=== PATIENT | female | born 1975 | race Caucasian/White ===

== ENCOUNTER 2016-10-23 20:58 | Emergency (ER) | payer MEDICAID ==
[~2016-10-23] VITALS: Ht 160 cm; Wt 91.0 kg
[2016-10-23] MEDS ORDERED: SODIUM CHLORIDE 0.9% 1,000 ML IV ONE (22:49)
[2016-10-23] MEDS ORDERED: MORPHINE SULFATE 4 MG/ML CPJ (NOT FOR IM USE) IV STA (22:49)
[2016-10-23] MEDS ORDERED: ONDANSETRON HCL 4MG/2ML VIAL IV STA (22:49)
[2016-10-23 23:04] LABS: BASOPHILS % 0.4 % (0.0-2.0); EOSINOPHILS % 1.3 % (0.0-5.0); HEMATOCRIT. 30.4 % (36.0-48.0); HEMOGLOBIN. 9.7 g/dL (12.0-16.0); LYMPHOCYTES % 11.6 % (20.0-50.0); MEAN CORPUSCULAR HEMOGLOBIN 25.5 pg (28.0-32.0); MEAN CORPUSCULAR HGB CONC 31.9 g/dL (31.0-37.0); MEAN CORPUSCULAR VOLUME 79.7 fL (81.0-99.0); MEAN PLATELET VOLUME 7.3 fl (7.4-10.4); MONOCYTES % 6.9 % (2.0-8.0); NEUTROPHILS % 79.8 % (40.0-76.0); PLATELET 90 x1000/uL (130-400); RED BLOOD CELL COUNT 3.82 mill/uL (4.2-5.4); RED CELL DISTRIBUTION WIDTH 23.3 % (11.6-14.6); WHITE BLOOD COUNT 6.9 x1000/uL (4.5-11.0)
[2016-10-23 23:14] LABS: ANION GAP 16; CALCIUM 8.5 mg/dL (8.5-10.1); CARBON DIOXIDE 24 mEq/L (21-32); CHLORIDE 103 mEq/L (98-107); INDEX HEMOLYSI 1 (1-3); INDEX ICTERIC 1 (1-4); INDEX LIPEMIC 1 (1-3)
[2016-10-23 23:15] LABS: DIFFERENTIAL COMMENT 1; eGFR > 60 mL/min (>60)
[2016-10-23 23:17] LABS: ADD RBC MORPHOLOGY YES; UREA NITROGEN BLOOD 3 mg/dL (7-21)
[2016-10-23 23:19] LABS: TROPONIN I < 0.02 ng/mL (0.00-0.04)
[2016-10-23 23:29] LABS: PLATELET ESTIMATE DECREASED
[2016-10-23 23:30] LABS: HYPOCHROMASIA 1+
[2016-10-24 01:58] VITALS: BP 121/75
== END 2016-10-24 03:37 | disposition home or self-care (01) ==
LOC: ER 21:11
DX: R09.1 Pleurisy (principal); J18.9 Pneumonia, unspecified organism; I50.9 Heart failure, unspecified
CPT/HCPCS: 36415; 71010; 80048; 81025; 84484; 85025; 93005; 96361; 96374; 96375; 99285; J2270; J2405; J7030; Z7610

== ENCOUNTER 2019-04-26 12:07 | Inpatient (IN) | payer SELFPAY ==
[~2019-04-26] VITALS: Ht 160 cm; Wt 99.3 kg
[2019-04-26] MEDS ORDERED: LORAZEPAM 2MG/ML CPJ IV ONE (13:00)
[2019-04-26 13:10] LABS: BASOPHILS % 0.6 % (0.0-2.0); EOSINOPHILS % 0.7 % (0.0-5.0); HEMATOCRIT. 23.9 % (36.0-48.0); LYMPHOCYTES % 13.3 % (20.0-50.0); MEAN CORPUSCULAR HEMOGLOBIN 18.8 pg (28.0-32.0); MEAN PLATELET VOLUME 8.2 fl (7.4-10.4); MONOCYTES % 7.5 % (2.0-8.0); NEUTROPHILS % 77.9 % (40.0-76.0); RED BLOOD CELL COUNT 3.74 mill/uL (4.2-5.4); RED CELL DISTRIBUTION WIDTH 22.5 % (11.6-14.6)
[2019-04-26 13:16] LABS: CHLORIDE 102 mEq/L (98-107)
[2019-04-26 13:17] LABS: PLATELET 41 x1000/uL (130-400)
[2019-04-26 13:59] LABS: PLATELET ESTIMATE MARKEDLY DECREASED
[2019-04-26] MEDS ORDERED: KCL 20MEQ/100ML PREMIX 100 ML IV NR (14:15)
[2019-04-26] MEDS ORDERED: HYDROCODONE/ACETAMINOPHEN 5/325MG TABLET PO PRN (17:15)
[2019-04-26] MEDS ORDERED: LORAZEPAM 2MG/ML CPJ IV PRN (17:15)
[2019-04-26] MEDS ORDERED: MORPHINE SULFATE 2 MG/ML CPJ (NOT FOR IM USE) IV PRN (17:15)
[2019-04-26] MEDS ORDERED: ONDANSETRON HCL 4MG/2ML INJ IV PRN (17:15)
[2019-04-26] MEDS: SODIUM CHLORIDE 0.9% 1,000 ML IV SCH (17:58)
[2019-04-26] MEDS ORDERED: POTASSIUM CHLORIDE 20MEQ TABLET SR PO NR (18:15)
[2019-04-26] MEDS ORDERED: THIAMINE HCL 100MG TABLET PO NR (18:15)
[2019-04-27] VITALS (9 sets, daily range): BP systolic 126–145; BP diastolic 65–83
[2019-04-27] MEDS: SODIUM CHLORIDE 0.9% 1,000 ML IV SCH (03:42)
[2019-04-27] MEDS: THIAMINE HCL 100MG TABLET PO SCH (10:00)
[2019-04-27] MEDS: POTASSIUM CHLORIDE 20MEQ TABLET SR PO SCH ×2 (10:00→16:39)
[2019-04-27 10:27] LABS: HEMATOCRIT 24.2 % (36.0-48.0); HEMOGLOBIN 7.2 g/dL (12.0-16.0)
[2019-04-27 10:37] LABS: INR 1.3; PROTHROMBIN TIME 13.5 sec (9.6-11.0)
[2019-04-27 10:58] LABS: CHLORIDE 103 mEq/L (98-107)
[2019-04-27 11:19] LABS: TOTAL IRON BINDING CAPACITY 417 ug/dL (250-450)
[2019-04-27] MEDS ORDERED: POTASSIUM CHLORIDE 20MEQ TABLET SR PO NR (13:00)
[2019-04-27] MEDS ORDERED: MAGNESIUM 4 G PREMIX 100 ML IV NR (14:00)
[2019-04-27 15:10] LABS: FERRITIN 10 ng/mL (10-291)
[2019-04-27 15:16] LABS: HEPATITIS B SURFACE ANTIGEN NEGATIVE
[2019-04-27 15:45] LABS: HEPATITIS A AB IGM NEGATIVE (NEGATIVE)
[2019-04-27] MEDS ORDERED: FUROSEMIDE 20MG/2ML VIAL IVP NR (16:30)
[2019-04-27] MEDS: LOSARTAN POTASSIUM 25 MG TABLET PO SCH (18:04)
[2019-04-27] MEDS: FERROUS SULFATE 325MG TABLET PO SCH (18:04)
[2019-04-27] MEDS: DOCUSATE SODIUM 100MG CAPSULE PO SCH (18:05)
[2019-04-27 23:29] LABS: CLARITY URINE CLEAR (CLEAR); COLOR URINE YELLOW (YELLOW); KETONES URINE NEGATIVE (NEGATIVE); LEUKOCYTE ESTERASE URINE 3+ (NEGATIVE); NITRITE URINE NEGATIVE (NEGATIVE); OCCULT BLOOD URINE 2+ (NEGATIVE); PROTEIN URINE NEGATIVE (NEGATIVE); SPECIFIC GRAVITY URINE 1.004 (1.005-1.030)
[2019-04-27 23:44] LABS: *AMPHETAMINES SCREEN URINE NEGATIVE (NEGATIVE); *BARBITURATES SCREEN URINE NEGATIVE (NEGATIVE)
[2019-04-27 23:46] LABS: *BENZODIAZEPINES SCREEN URINE NEGATIVE (NEGATIVE); *COCAINE SCREEN URINE NEGATIVE (NEGATIVE); METHADONE URINE SCREEN NEGATIVE (NEGATIVE)
[2019-04-27 23:47] LABS: CANNABINOID URINE SCREEN NEGATIVE (NEGATIVE); OPIATES URINE SCREEN NEGATIVE (NEGATIVE); PHENCYCLIDINE URINE SCREEN NEGATIVE (NEGATIVE)
[2019-04-28] VITALS: BP 134/80
[2019-04-28 04:00] VITALS: BP 120/63
[2019-04-28 08:00] VITALS: BP 137/71
[2019-04-28 08:00] LABS: HEMATOCRIT. 28.6 % (36.0-48.0); HEMOGLOBIN. 8.1 g/dL (12.0-16.0); MEAN CORPUSCULAR HEMOGLOBIN 19.5 pg (28.0-32.0); MEAN CORPUSCULAR VOLUME 68.7 fL (81.0-99.0); MEAN PLATELET VOLUME 8.3 fl (7.4-10.4); RED BLOOD CELL COUNT 4.16 mill/uL (4.2-5.4); RED CELL DISTRIBUTION WIDTH 23.4 % (11.6-14.6)
[2019-04-28] MEDS ORDERED: FUROSEMIDE 20MG/2ML VIAL IVP SCH (08:00)
[2019-04-28 08:03] LABS: CHLORIDE 108 mEq/L (98-107)
[2019-04-28 09:31] VITALS: BP 137/71
[2019-04-28] MEDS: POTASSIUM CHLORIDE 20MEQ TABLET SR PO SCH (09:47)
[2019-04-28] MEDS: FERROUS SULFATE 325MG TABLET PO SCH ×2 (09:47→12:26)
[2019-04-28] MEDS: DOCUSATE SODIUM 100MG CAPSULE PO SCH (09:47)
[2019-04-28] MEDS: THIAMINE HCL 100MG TABLET PO SCH (09:47)
[2019-04-28] MEDS: LOSARTAN POTASSIUM 25 MG TABLET PO SCH (09:47)
[2019-04-28] MEDS ORDERED: CEFTRIAXONE 1 G PREMIX 50 ML IV SCH (10:30)
[2019-04-28] MEDS ORDERED: CEFTRIAXONE 1,000 MG in DEXTROSE 5% WATER 50 ML IV SCH (11:00)
[2019-04-28 12:20] VITALS: BP 111/56
[2019-04-28 13:56] VITALS: BP 111/56
[2019-04-29 15:57] LABS: PLATELET ESTIMATE MARKEDLY DECREASED
[2019-04-29 15:58] LABS: PLATELET 48 x1000/uL (130-400)
[2019-04-30 13:09] LABS: HIV SCREEN 4G Non Reactive (Non Reactive)
== END 2019-04-28 14:24 | disposition home or self-care (01) | DRG 194 ==
LOC: ER 12:07 → EDBEDREQSVC 16:49 → EDBEDREQ 16:50 → EDBEDREQTM 16:50 → ENRESERV 21:47 → 7WST 04-27 01:12
PROVIDERS: ADMIT Internal Medicine Nephrology; ATTEND Internal Medicine Nephrology
PROC: 30233N1 Transfusion of Nonautologous Red Blood Cells into Peripheral Vein, Percutaneous Approach (ICD-10-PCS; principal; 2019-04-27)
DX: I11.0 Hypertensive heart disease with heart failure (principal); D61.818 Other pancytopenia; K74.60 Unspecified cirrhosis of liver; E66.01 Morbid (severe) obesity due to excess calories; E87.6 Hypokalemia; R07.89 Other chest pain; I50.33 Acute on chronic diastolic (congestive) heart failure; K76.0 Fatty (change of) liver, not elsewhere classified; N39.0 Urinary tract infection, site not specified; Z98.891 History of uterine scar from previous surgery; Z68.38 Body mass index [BMI] 38.0-38.9, adult; Z79.899 Other long term (current) drug therapy
CPT/HCPCS: 36415; 71045; 76700; 80048; 80305; 81003; 82728; 83036; 83540; 83550; 83735; 83880; 84484; 85014; 85018; 85049; 85379; 85384; 86705; 86709; 86803; 86850; 86870; 86900; 86920; 87077; 87186; 87340; 87389; 93005; 93306; 93970; 99285; J0696; J1940; J2060; J3475; J3480; J7040; J7060; P9016

== ENCOUNTER 2020-01-04 17:01 | Inpatient (IN) | payer MEDICAID ==
[~2020-01-04] VITALS: Ht 160 cm; Wt 109.8 kg
[2020-01-04 18:05] LABS: HEMATOCRIT. 31.3 % (36.0-48.0); HEMOGLOBIN. 9.8 g/dL (12.0-16.0); MEAN CORPUSCULAR HEMOGLOBIN 24.1 pg (28.0-32.0); MEAN CORPUSCULAR VOLUME 76.7 fL (81.0-99.0); MEAN PLATELET VOLUME 8.4 fl (7.4-10.4); RED BLOOD CELL COUNT 4.08 mill/uL (4.2-5.4); RED CELL DISTRIBUTION WIDTH 23.9 % (11.6-14.6)
[2020-01-04 18:10] LABS: PLATELET 41 x1000/uL (130-400)
[2020-01-04 18:12] LABS: CHLORIDE 101 mEq/L (98-107)
[2020-01-04 18:18] LABS: ETHANOL BLOOD 215 mg/dL
[2020-01-04] MEDS ORDERED: MORPHINE SULFATE 4 MG/ML CPJ (NOT FOR IM USE) IV STA (18:31)
[2020-01-04] MEDS ORDERED: ONDANSETRON HCL 4MG/2ML INJ IV STA (18:31)
[2020-01-04 18:42] LABS: CLARITY URINE CLEAR (CLEAR); COLOR URINE YELLOW (YELLOW); KETONES URINE NEGATIVE (NEGATIVE); LEUKOCYTE ESTERASE URINE 1+ (NEGATIVE); NITRITE URINE POSITIVE (NEGATIVE); OCCULT BLOOD URINE NEGATIVE (NEGATIVE); PROTEIN URINE 1+ (NEGATIVE); SPECIFIC GRAVITY URINE 1.006 (1.005-1.030)
[2020-01-04 18:47] LABS: HCG SCREEN NEGATIVE
[2020-01-04 18:58] LABS: *AMPHETAMINES SCREEN URINE NEGATIVE (NEGATIVE); *BARBITURATES SCREEN URINE NEGATIVE (NEGATIVE); *BENZODIAZEPINES SCREEN URINE NEGATIVE (NEGATIVE); *COCAINE SCREEN URINE NEGATIVE (NEGATIVE); METHADONE URINE SCREEN NEGATIVE (NEGATIVE); OPIATES URINE SCREEN NEGATIVE (NEGATIVE)
[2020-01-04 18:59] LABS: CANNABINOID URINE SCREEN NEGATIVE (NEGATIVE); PHENCYCLIDINE URINE SCREEN NEGATIVE (NEGATIVE)
[2020-01-04] MEDS ORDERED: POTASSIUM CHLORIDE 20MEQ TABLET SR PO ONE (19:00)
[2020-01-04] MEDS ORDERED: CEFTRIAXONE 1 G PREMIX 50 ML IV ONE (19:00)
[2020-01-04 19:03] LABS: INR 1.2; PROTHROMBIN TIME 12.7 sec (9.6-11.0)
[2020-01-04 19:06] LABS: NUCLEATED RED BLOOD CELLS 3 /100 WBC
[2020-01-04 19:07] LABS: PLATELET ESTIMATE MARKEDLY DECREASED
[2020-01-04] MEDS ORDERED: DOCUSATE SODIUM 100MG CAPSULE PO PRN (22:15)
[2020-01-04] MEDS ORDERED: LORAZEPAM 2MG/ML CPJ IV PRN (22:15)
[2020-01-04] MEDS ORDERED: MAGNESIUM/ALUMINUM HYDROXIDE/SIMETHICONE 30ML UDC PO PRN (22:15)
[2020-01-04] MEDS ORDERED: DIPHENHYDRAMINE 50MG/ML VIAL IV PRN (22:15)
[2020-01-04] MEDS ORDERED: CLONIDINE 0.1MG TABLET PO PRN (22:15)
[2020-01-04] MEDS ORDERED: HYDROCODONE/ACETAMINOPHEN 10/325MG TABLET PO PRN (22:15)
[2020-01-04] MEDS ORDERED: HYDRALAZINE 20MG/ML VIAL IV PRN (22:15)
[2020-01-04] MEDS ORDERED: IPRATROPIUM/ALBUTEROL 0.5-3(2.5)MG/3ML NEB HHN PRN (22:15)
[2020-01-04] MEDS ORDERED: GUAIFENESIN 200MG/10ML SUGAR FREE UDC PO PRN (22:15)
[2020-01-04] MEDS ORDERED: ONDANSETRON HCL 4MG/2ML INJ IV PRN (22:15)
[2020-01-04] MEDS ORDERED: DEXT 5%/0.45% NACL 1000ML 1,000 ML IV SCH (23:00)
[2020-01-04 23:15] VITALS: BP 125/67
[2020-01-05] VITALS: BP 118/72
[2020-01-05] MEDS: MORPHINE SULFATE 2 MG/ML CPJ (NOT FOR IM USE) IV PRN (01:34)
[2020-01-05] MEDS ORDERED: TOPUD PO (01:58)
[2020-01-05 04:00] VITALS: BP 158/100
[2020-01-05] MEDS: SODIUM CHLORIDE 0.9% INJ 3ML FLUSH IVF SCH ×3 (06:18→22:48)
[2020-01-05 06:50] LABS: CHLORIDE 103 mEq/L (98-107)
[2020-01-05 06:51] LABS: HEMATOCRIT. 31.5 % (36.0-48.0); HEMOGLOBIN. 9.4 g/dL (12.0-16.0); MEAN CORPUSCULAR HEMOGLOBIN 23.6 pg (28.0-32.0); MEAN PLATELET VOLUME 8.2 fl (7.4-10.4); RED BLOOD CELL COUNT 3.98 mill/uL (4.2-5.4)
[2020-01-05 07:54] LABS: INR 1.2; PARTIAL THROMBOPLASTIN TIME 29.9 sec (23.4-31.0); PROTHROMBIN TIME 13.3 sec (9.6-11.0)
[2020-01-05 08:00] VITALS: BP 141/72
[2020-01-05] MEDS: ACETAMINOPHEN 325MG TABLET PO PRN ×2 (08:05→16:20)
[2020-01-05 08:27] LABS: PLATELET 39 x1000/uL (130-400)
[2020-01-05 08:31] LABS: NUCLEATED RED BLOOD CELLS 1 /100 WBC
[2020-01-05 08:32] LABS: PLATELET ESTIMATE MARKEDLY DECREASED
[2020-01-05 11:36] VITALS: BP 137/79
[2020-01-05] MEDS: FUROSEMIDE 40MG/4ML VIAL IVP SCH (14:08)
[2020-01-05] MEDS ORDERED: OXYMETAZOLINE HCL NASAL SPRAY 15ML BOTHNSTRLS PRN (15:30)
[2020-01-05 16:00] VITALS: BP 136/67
[2020-01-05] MEDS: AZITHROMYCIN 500 MG in DEXT 5% WATER 250 ML IV SCH (16:20)
[2020-01-05] MEDS: MULTIVITAMINS,THER W-MINERALS TABLET PO SCH (16:20)
[2020-01-05] MEDS: SODIUM CHLORIDE 0.45% 1,000 ML IV SCH (16:21)
[2020-01-05] MEDS: THIAMINE HCL 100MG TABLET PO SCH (16:22)
[2020-01-05] MEDS: FOLIC ACID 1MG TABLET PO SCH (16:24)
[2020-01-05] MEDS: CEFTRIAXONE 1 G PREMIX 50 ML IV SCH (17:25)
[2020-01-05] MEDS ORDERED: CEFTRIAXONE 1 G PREMIX 50 ML IV SCH (18:00)
[2020-01-05 20:00] VITALS: BP 135/70
[2020-01-05] MEDS: ASCORBIC ACID 500 MG TABLET PO SCH (21:56)
[2020-01-05] MEDS: CHLORDIAZEPOXIDE 25MG CAPSULE PO SCH (21:57)
[2020-01-05] MEDS: GUAIFENESIN 600MG ER TABLET PO SCH (21:57)
[2020-01-06] VITALS: BP 151/74
[2020-01-06] MEDS: SODIUM CHLORIDE 0.9% INJ 3ML FLUSH IVF SCH ×3 (06:17→21:19)
[2020-01-06] MEDS: CHLORDIAZEPOXIDE 25MG CAPSULE PO SCH ×3 (06:17→21:18)
[2020-01-06] MEDS: ACETAMINOPHEN 325MG TABLET PO PRN ×2 (06:32→16:53)
[2020-01-06 06:33] LABS: BASOPHILS % 0.4 % (0.0-2.0); EOSINOPHILS % 6.5 % (0.0-5.0); HEMATOCRIT. 31.5 % (36.0-48.0); HEMOGLOBIN. 9.4 g/dL (12.0-16.0); LYMPHOCYTES % 8.5 % (20.0-50.0); MEAN CORPUSCULAR HEMOGLOBIN 23.6 pg (28.0-32.0); MEAN CORPUSCULAR VOLUME 78.9 fL (81.0-99.0); MEAN PLATELET VOLUME 8.2 fl (7.4-10.4); MONOCYTES % 7.4 % (2.0-8.0); NEUTROPHILS % 77.2 % (40.0-76.0); PLATELET 53 x1000/uL (130-400); RED BLOOD CELL COUNT 3.99 mill/uL (4.2-5.4); RED CELL DISTRIBUTION WIDTH 24.9 % (11.6-14.6)
[2020-01-06 06:39] LABS: INR 1.4; PROTHROMBIN TIME 14.9 sec (9.6-11.0)
[2020-01-06 06:55] LABS: CHLORIDE 96 mEq/L (98-107)
[2020-01-06 07:03] LABS: AMYLASE 171 IU/L (25-115); TOTAL IRON BINDING CAPACITY 346 ug/dL (250-450)
[2020-01-06 07:54] VITALS: BP 129/66
[2020-01-06] MEDS: FOLIC ACID 1MG TABLET PO SCH (09:02)
[2020-01-06] MEDS: MULTIVITAMINS,THER W-MINERALS TABLET PO SCH (09:02)
[2020-01-06] MEDS: FUROSEMIDE 40MG/4ML VIAL IVP SCH (09:02)
[2020-01-06] MEDS: ZINC SULFATE 220 MG ( 50 ) CAPSULE PO SCH (09:03)
[2020-01-06] MEDS: THIAMINE HCL 100MG TABLET PO SCH (09:03)
[2020-01-06] MEDS: GUAIFENESIN 600MG ER TABLET PO SCH ×2 (09:03→21:18)
[2020-01-06] MEDS: ASCORBIC ACID 500 MG TABLET PO SCH ×2 (09:03→21:19)
[2020-01-06] MEDS ORDERED: POTASSIUM CHLORIDE INJ 40 MEQ in DEXT 5% WATER 250 ML IV SCH (10:00)
[2020-01-06] MEDS: ALBUTEROL 6.7GM HFA INHALER ORI SCH (10:29)
[2020-01-06 12:00] VITALS: BP 114/58
[2020-01-06] MEDS: AZITHROMYCIN 500 MG in DEXT 5% WATER 250 ML IV SCH (12:06)
[2020-01-06] MEDS: MORPHINE SULFATE 2 MG/ML CPJ (NOT FOR IM USE) IV PRN (12:06)
[2020-01-06] MEDS: CEFTRIAXONE 1 G PREMIX 50 ML IV SCH (13:22)
[2020-01-06 16:00] VITALS: BP 118/67
[2020-01-06] MEDS: SODIUM CHLORIDE 0.45% 1,000 ML IV SCH ×2 (16:53→23:21)
[2020-01-06 20:00] VITALS: BP 123/71
[2020-01-07] VITALS (7 sets, daily range): BP systolic 117–136; BP diastolic 72–79
[2020-01-07] MEDS: ACETAMINOPHEN 325MG TABLET PO PRN ×3 (01:50→18:40)
[2020-01-07] MEDS: ALBUTEROL 6.7GM HFA INHALER ORI SCH ×3 (04:00→13:20)
[2020-01-07] MEDS: CHLORDIAZEPOXIDE 25MG CAPSULE PO SCH ×3 (05:18→21:30)
[2020-01-07] MEDS: SODIUM CHLORIDE 0.9% INJ 3ML FLUSH IVF SCH ×3 (05:18→21:30)
[2020-01-07] MEDS: SODIUM CHLORIDE 0.45% 1,000 ML IV SCH ×3 (06:01→19:21)
[2020-01-07] MEDS: THIAMINE HCL 100MG TABLET PO SCH (08:32)
[2020-01-07] MEDS: ASCORBIC ACID 500 MG TABLET PO SCH ×2 (08:32→20:43)
[2020-01-07] MEDS: ZINC SULFATE 220 MG ( 50 ) CAPSULE PO SCH (08:32)
[2020-01-07] MEDS: MULTIVITAMINS,THER W-MINERALS TABLET PO SCH (08:33)
[2020-01-07] MEDS: GUAIFENESIN 600MG ER TABLET PO SCH ×2 (08:33→20:43)
[2020-01-07] MEDS: FOLIC ACID 1MG TABLET PO SCH (08:33)
[2020-01-07 08:52] LABS: INR 1.5; PROTHROMBIN TIME 16.5 sec (9.6-11.0)
[2020-01-07] MEDS ORDERED: SODIUM CHLORIDE 45ML SPRAY NS PRN (13:15)
[2020-01-07] MEDS ORDERED: IPRATROPIUM/ALBUTEROL 0.5-3(2.5)MG/3ML NEB HHN PRN (14:00)
[2020-01-07] MEDS: AZITHROMYCIN 500 MG in DEXT 5% WATER 250 ML IV SCH (14:05)
[2020-01-07] MEDS: CEFTRIAXONE 1 G PREMIX 50 ML IV SCH (15:24)
[2020-01-07] MEDS: LACTULOSE 20G/30ML UDC PO SCH ×2 (15:37→21:30)
[2020-01-07] MEDS: RIFAXIMIN 550 MG TABLET PO SCH (20:43)
[2020-01-07] MEDS: IPRATROPIUM/ALBUTEROL 0.5-3(2.5)MG/3ML NEB HHN SCH (21:38)
[2020-01-08] VITALS (7 sets, daily range): BP systolic 113–145; BP diastolic 57–86
[2020-01-08] MEDS: IPRATROPIUM/ALBUTEROL 0.5-3(2.5)MG/3ML NEB HHN SCH ×4 (01:02→21:38)
[2020-01-08] MEDS: SODIUM CHLORIDE 0.45% 1,000 ML IV SCH ×4 (02:01→21:31)
[2020-01-08 05:31] LABS: INR 1.6; PROTHROMBIN TIME 16.7 sec (9.6-11.0)
[2020-01-08] MEDS: LACTULOSE 20G/30ML UDC PO SCH ×4 (06:08→21:28)
[2020-01-08] MEDS: SODIUM CHLORIDE 0.9% INJ 3ML FLUSH IVF SCH ×3 (06:08→21:27)
[2020-01-08] MEDS: CHLORDIAZEPOXIDE 25MG CAPSULE PO SCH ×2 (06:08→14:35)
[2020-01-08] MEDS: RIFAXIMIN 550 MG TABLET PO SCH ×2 (08:05→21:27)
[2020-01-08] MEDS: ASCORBIC ACID 500 MG TABLET PO SCH ×2 (08:05→21:27)
[2020-01-08] MEDS: MULTIVITAMINS,THER W-MINERALS TABLET PO SCH (08:05)
[2020-01-08] MEDS: GUAIFENESIN 600MG ER TABLET PO SCH ×2 (08:05→21:27)
[2020-01-08] MEDS: THIAMINE HCL 100MG TABLET PO SCH (08:05)
[2020-01-08] MEDS: FOLIC ACID 1MG TABLET PO SCH (08:05)
[2020-01-08] MEDS: ZINC SULFATE 220 MG ( 50 ) CAPSULE PO SCH (08:05)
[2020-01-08] MEDS ORDERED: IOHEXOL-350 100 ML BOTTLE ONE (08:47)
[2020-01-08 10:55] LABS: BASOPHILS % 1.1 % (0.0-2.0); EOSINOPHILS % 5.5 % (0.0-5.0); HEMATOCRIT. 33.3 % (36.0-48.0); HEMOGLOBIN. 10.1 g/dL (12.0-16.0); LYMPHOCYTES % 10.8 % (20.0-50.0); MEAN CORPUSCULAR HEMOGLOBIN 23.7 pg (28.0-32.0); MEAN CORPUSCULAR VOLUME 78.1 fL (81.0-99.0); MEAN PLATELET VOLUME 8.3 fl (7.4-10.4); MONOCYTES % 9.4 % (2.0-8.0); NEUTROPHILS % 73.2 % (40.0-76.0); PLATELET 68 x1000/uL (130-400); RED BLOOD CELL COUNT 4.27 mill/uL (4.2-5.4); RED CELL DISTRIBUTION WIDTH 26.1 % (11.6-14.6)
[2020-01-08 11:21] LABS: CHLORIDE 95 mEq/L (98-107)
[2020-01-08] MEDS: ACETAMINOPHEN 325MG TABLET PO PRN (12:08)
[2020-01-08] MEDS ORDERED: POTASSIUM CHLORIDE 20MEQ TABLET SR PO NR (12:30)
[2020-01-08 13:26] LABS: PLATELET ESTIMATE MARKEDLY DECREASED
[2020-01-08] MEDS: AZITHROMYCIN 500 MG in DEXT 5% WATER 250 ML IV SCH (13:43)
[2020-01-08] MEDS ORDERED: POTASSIUM CHLORIDE INJ 40 MEQ in DEXT 5% WATER 250 ML IV ONE (14:00)
[2020-01-08] MEDS: CEFTRIAXONE 1 G PREMIX 50 ML IV SCH (14:30)
[2020-01-09] VITALS: BP 122/90
[2020-01-09] MEDS: IPRATROPIUM/ALBUTEROL 0.5-3(2.5)MG/3ML NEB HHN SCH ×4 (02:36→14:05)
[2020-01-09 04:00] VITALS: BP 117/69
[2020-01-09] MEDS: SODIUM CHLORIDE 0.45% 1,000 ML IV SCH ×3 (05:12→18:14)
[2020-01-09] MEDS: SODIUM CHLORIDE 0.9% INJ 3ML FLUSH IVF SCH ×3 (05:12→23:25)
[2020-01-09] MEDS: LACTULOSE 20G/30ML UDC PO SCH ×3 (05:12→23:25)
[2020-01-09 06:13] LABS: BASOPHILS % 0.2 % (0.0-2.0); EOSINOPHILS % 5.8 % (0.0-5.0); HEMOGLOBIN. 9.4 g/dL (12.0-16.0); LYMPHOCYTES % 7.9 % (20.0-50.0); MEAN CORPUSCULAR HEMOGLOBIN 23.9 pg (28.0-32.0); MEAN CORPUSCULAR VOLUME 78.4 fL (81.0-99.0); NEUTROPHILS % 76.1 % (40.0-76.0); RED BLOOD CELL COUNT 3.95 mill/uL (4.2-5.4); RED CELL DISTRIBUTION WIDTH 25.9 % (11.6-14.6)
[2020-01-09 06:18] LABS: INR 1.4; PROTHROMBIN TIME 15.4 sec (9.6-11.0)
[2020-01-09 06:31] LABS: CHLORIDE 98 mEq/L (98-107)
[2020-01-09 06:42] LABS: AMYLASE 178 IU/L (25-115)
[2020-01-09 08:00] VITALS: BP 121/69
[2020-01-09] MEDS: ASCORBIC ACID 500 MG TABLET PO SCH ×2 (08:19→23:26)
[2020-01-09] MEDS: MULTIVITAMINS,THER W-MINERALS TABLET PO SCH (08:19)
[2020-01-09] MEDS: GUAIFENESIN 600MG ER TABLET PO SCH ×2 (08:19→23:26)
[2020-01-09] MEDS: FOLIC ACID 1MG TABLET PO SCH (08:19)
[2020-01-09] MEDS: THIAMINE HCL 100MG TABLET PO SCH (08:19)
[2020-01-09] MEDS: ZINC SULFATE 220 MG ( 50 ) CAPSULE PO SCH (08:20)
[2020-01-09] MEDS: CHLORDIAZEPOXIDE 25MG CAPSULE PO SCH (08:20)
[2020-01-09] MEDS: RIFAXIMIN 550 MG TABLET PO SCH ×2 (08:20→23:25)
[2020-01-09] MEDS ORDERED: POTASSIUM CHLORIDE 20MEQ TABLET SR PO SCH (09:00)
[2020-01-09 11:49] LABS: MEAN PLATELET VOLUME 8.3 fl (7.4-10.4); PLATELET 68 x1000/uL (130-400)
[2020-01-09 12:00] VITALS: BP 113/71
[2020-01-09] MEDS: AZITHROMYCIN 500 MG in DEXT 5% WATER 250 ML IV SCH (12:42)
[2020-01-09 16:00] VITALS: BP 117/80
[2020-01-09] MEDS: SODIUM CHLORIDE 45ML SPRAY NS SCH ×2 (18:13→23:25)
[2020-01-09 18:51] LABS: BG BASE EXCESS 6.8 mmol/L (-2.0-2.0); BG CARBOXYHEMOGLOBIN 0.8 % (0.5-1.5); BG DEOXYHEMOGLOBIN 7.6 % (0.0-5.0); BG FRACTION INSPIRED OXYGEN 40; BG HCO3 ACT 33.6 mmol/L (22.0-26.0); BG METHEMOGLOBIN 0.3 % (0.0-1.5); BG OXYGEN SATURATION 92.3 % (92.0-98.5); BG OXYHEMOGLOBIN 91.3 % (94.0-97.0); BG PH 7.359 (7.350-7.450); BG PO2 68.1 mmHg (75.0-100.0); BG SAMPLE SITE RIGHT RADIAL; BG VENT MODE NASAL CANNULA
[2020-01-09 20:00] VITALS: BP 120/68
[2020-01-10 00:24] VITALS: BP 141/71
[2020-01-10] MEDS: IPRATROPIUM/ALBUTEROL 0.5-3(2.5)MG/3ML NEB HHN SCH ×4 (01:59→21:06)
[2020-01-10] MEDS: SODIUM CHLORIDE 45ML SPRAY NS SCH ×6 (02:00→21:42)
[2020-01-10] MEDS: SODIUM CHLORIDE 0.45% 1,000 ML IV SCH ×4 (03:57→21:42)
[2020-01-10 04:00] VITALS: BP 139/65
[2020-01-10] MEDS: LACTULOSE 20G/30ML UDC PO SCH ×3 (06:52→21:22)
[2020-01-10] MEDS: SODIUM CHLORIDE 0.9% INJ 3ML FLUSH IVF SCH ×3 (06:52→21:43)
[2020-01-10 06:59] LABS: EOSINOPHILS % 6.6 % (0.0-5.0); HEMATOCRIT. 31.8 % (36.0-48.0); HEMOGLOBIN. 9.4 g/dL (12.0-16.0); LYMPHOCYTES % 10.9 % (20.0-50.0); MEAN CORPUSCULAR VOLUME 80.8 fL (81.0-99.0); MEAN PLATELET VOLUME 7.9 fl (7.4-10.4); MONOCYTES % 10.8 % (2.0-8.0); NEUTROPHILS % 70.7 % (40.0-76.0); PLATELET 82 x1000/uL (130-400); RED BLOOD CELL COUNT 3.93 mill/uL (4.2-5.4); RED CELL DISTRIBUTION WIDTH 25.3 % (11.6-14.6)
[2020-01-10] MEDS: ACETAMINOPHEN 325MG TABLET PO PRN (07:02)
[2020-01-10 07:11] LABS: CHLORIDE 100 mEq/L (98-107)
[2020-01-10 08:00] VITALS: BP 115/70
[2020-01-10] MEDS ORDERED: POTASSIUM CHLORIDE 20MEQ TABLET SR PO NR (08:15)
[2020-01-10] MEDS: ASCORBIC ACID 500 MG TABLET PO SCH ×2 (08:30→21:14)
[2020-01-10] MEDS: RIFAXIMIN 550 MG TABLET PO SCH ×2 (08:30→21:21)
[2020-01-10] MEDS: ZINC SULFATE 220 MG ( 50 ) CAPSULE PO SCH (08:30)
[2020-01-10] MEDS: FOLIC ACID 1MG TABLET PO SCH (08:30)
[2020-01-10] MEDS: GUAIFENESIN 600MG ER TABLET PO SCH ×2 (08:30→21:26)
[2020-01-10] MEDS: THIAMINE HCL 100MG TABLET PO SCH (08:30)
[2020-01-10] MEDS: CHLORDIAZEPOXIDE 25MG CAPSULE PO SCH (08:30)
[2020-01-10] MEDS: MULTIVITAMINS,THER W-MINERALS TABLET PO SCH (08:30)
[2020-01-10] MEDS ORDERED: POTASSIUM CHLORIDE INJ 40 MEQ in DEXT 5% WATER 250 ML IV NR (09:00)
[2020-01-10 12:15] VITALS: BP 116/57
[2020-01-10 16:00] VITALS: BP 108/61
[2020-01-10 20:00] VITALS: BP 127/82
[2020-01-10] MEDS: POTASSIUM CHLORIDE 20MEQ TABLET SR PO SCH (21:19)
[2020-01-11] VITALS: BP 124/76
[2020-01-11] MEDS: SODIUM CHLORIDE 45ML SPRAY NS SCH ×6 (01:59→22:07)
[2020-01-11] MEDS: SODIUM CHLORIDE 0.45% 1,000 ML IV SCH ×3 (03:21→17:49)
[2020-01-11 04:00] VITALS: BP 115/89
[2020-01-11] MEDS: LACTULOSE 20G/30ML UDC PO SCH ×3 (05:19→17:15)
[2020-01-11] MEDS: SODIUM CHLORIDE 0.9% INJ 3ML FLUSH IVF SCH ×3 (05:19→22:07)
[2020-01-11 05:22] LABS: CHLORIDE 101 mEq/L (98-107)
[2020-01-11 06:14] LABS: BASOPHILS % 1.8 % (0.0-2.0); EOSINOPHILS % 5.2 % (0.0-5.0); HEMATOCRIT. 30.7 % (36.0-48.0); HEMOGLOBIN. 9.3 g/dL (12.0-16.0); LYMPHOCYTES % 10.7 % (20.0-50.0); MEAN CORPUSCULAR HEMOGLOBIN 24.2 pg (28.0-32.0); MEAN PLATELET VOLUME 7.6 fl (7.4-10.4); NEUTROPHILS % 71.3 % (40.0-76.0); PLATELET 101 x1000/uL (130-400); RED BLOOD CELL COUNT 3.84 mill/uL (4.2-5.4); RED CELL DISTRIBUTION WIDTH 25.4 % (11.6-14.6)
[2020-01-11 08:00] VITALS: BP 125/81
[2020-01-11] MEDS: GUAIFENESIN 600MG ER TABLET PO SCH ×2 (08:47→20:41)
[2020-01-11] MEDS: ASCORBIC ACID 500 MG TABLET PO SCH ×2 (08:47→20:41)
[2020-01-11] MEDS: FOLIC ACID 1MG TABLET PO SCH (08:47)
[2020-01-11] MEDS: CHLORDIAZEPOXIDE 25MG CAPSULE PO SCH (08:47)
[2020-01-11] MEDS: ZINC SULFATE 220 MG ( 50 ) CAPSULE PO SCH (08:47)
[2020-01-11] MEDS: THIAMINE HCL 100MG TABLET PO SCH (08:47)
[2020-01-11] MEDS: POTASSIUM CHLORIDE 20MEQ TABLET SR PO SCH ×2 (08:47→17:15)
[2020-01-11] MEDS: RIFAXIMIN 550 MG TABLET PO SCH ×2 (08:47→20:41)
[2020-01-11] MEDS: MULTIVITAMINS,THER W-MINERALS TABLET PO SCH (08:47)
[2020-01-11] MEDS: IPRATROPIUM/ALBUTEROL 0.5-3(2.5)MG/3ML NEB HHN SCH ×3 (09:17→21:47)
[2020-01-11 12:00] VITALS: BP 110/56
[2020-01-11] MEDS: FERROUS SULFATE 325MG TABLET PO SCH ×2 (12:49→17:15)
[2020-01-11 15:39] LABS: CLARITY URINE CLEAR (CLEAR); COLOR URINE YELLOW (YELLOW); KETONES URINE NEGATIVE (NEGATIVE); LEUKOCYTE ESTERASE URINE 2+ (NEGATIVE); NITRITE URINE NEGATIVE (NEGATIVE); OCCULT BLOOD URINE NEGATIVE (NEGATIVE); PH URINE 7.5 (4.5-8.0); PROTEIN URINE NEGATIVE (NEGATIVE); SPECIFIC GRAVITY URINE 1.005 (1.005-1.030); UROBILINOGEN URINE 0.2 E.U./dL (0.2-1.0)
[2020-01-11 16:00] VITALS: BP 111/62
[2020-01-11 20:00] VITALS: BP 119/76
[2020-01-12] MEDS: IPRATROPIUM/ALBUTEROL 0.5-3(2.5)MG/3ML NEB HHN SCH ×4 (03:14→20:01)
[2020-01-12] MEDS: SODIUM CHLORIDE 45ML SPRAY NS SCH ×5 (03:48→22:00)
[2020-01-12] MEDS: SODIUM CHLORIDE 0.45% 1,000 ML IV SCH ×2 (03:51→16:58)
[2020-01-12 04:00] VITALS: BP 126/76
[2020-01-12] MEDS: SODIUM CHLORIDE 0.9% INJ 3ML FLUSH IVF SCH ×3 (06:10→22:00)
[2020-01-12] MEDS: ZINC SULFATE 220 MG ( 50 ) CAPSULE PO SCH (08:07)
[2020-01-12] MEDS: POTASSIUM CHLORIDE 20MEQ TABLET SR PO SCH ×2 (08:07→16:58)
[2020-01-12] MEDS: MULTIVITAMINS,THER W-MINERALS TABLET PO SCH (08:07)
[2020-01-12] MEDS: ASCORBIC ACID 500 MG TABLET PO SCH ×2 (08:07→20:48)
[2020-01-12] MEDS: FERROUS SULFATE 325MG TABLET PO SCH ×3 (08:07→16:58)
[2020-01-12] MEDS: RIFAXIMIN 550 MG TABLET PO SCH ×2 (08:07→20:48)
[2020-01-12] MEDS: THIAMINE HCL 100MG TABLET PO SCH (08:08)
[2020-01-12] MEDS: FOLIC ACID 1MG TABLET PO SCH (08:08)
[2020-01-12] MEDS: CHLORDIAZEPOXIDE 25MG CAPSULE PO SCH (08:08)
[2020-01-12] MEDS: GUAIFENESIN 600MG ER TABLET PO SCH ×2 (08:08→20:48)
[2020-01-12] MEDS: LACTULOSE 20G/30ML UDC PO SCH (08:17)
[2020-01-12 08:37] VITALS: BP 105/64
[2020-01-12 12:30] VITALS: BP 111/68
[2020-01-12] MEDS ORDERED: ZOLPIDEM TARTRATE 5MG TABLET PO PRN (15:45)
[2020-01-12 16:00] VITALS: BP 116/75
[2020-01-12 20:00] VITALS: BP 116/73
[2020-01-12] MEDS: ACETAMINOPHEN 325MG TABLET PO PRN (20:48)
[2020-01-13] VITALS: BP 115/66
[2020-01-13] MEDS: IPRATROPIUM/ALBUTEROL 0.5-3(2.5)MG/3ML NEB HHN SCH ×4 (00:12→22:20)
[2020-01-13] MEDS: SODIUM CHLORIDE 45ML SPRAY NS SCH ×6 (02:00→21:33)
[2020-01-13 04:00] VITALS: BP 117/58
[2020-01-13] MEDS: SODIUM CHLORIDE 0.9% INJ 3ML FLUSH IVF SCH ×3 (06:32→21:32)
[2020-01-13 06:35] LABS: BASOPHILS % 1.2 % (0.0-2.0); EOSINOPHILS % 4.3 % (0.0-5.0); HEMATOCRIT. 32.7 % (36.0-48.0); HEMOGLOBIN. 9.9 g/dL (12.0-16.0); LYMPHOCYTES % 10.1 % (20.0-50.0); MEAN CORPUSCULAR HEMOGLOBIN 24.2 pg (28.0-32.0); MEAN CORPUSCULAR VOLUME 79.6 fL (81.0-99.0); MEAN PLATELET VOLUME 7.9 fl (7.4-10.4); MONOCYTES % 10.7 % (2.0-8.0); NEUTROPHILS % 73.7 % (40.0-76.0); PLATELET 161 x1000/uL (130-400); RED BLOOD CELL COUNT 4.11 mill/uL (4.2-5.4); RED CELL DISTRIBUTION WIDTH 25.7 % (11.6-14.6)
[2020-01-13 06:38] LABS: CHLORIDE 100 mEq/L (98-107)
[2020-01-13 08:00] VITALS: BP 119/70
[2020-01-13] MEDS: MULTIVITAMINS,THER W-MINERALS TABLET PO SCH (08:45)
[2020-01-13] MEDS: FERROUS SULFATE 325MG TABLET PO SCH ×3 (08:46→17:56)
[2020-01-13] MEDS: THIAMINE HCL 100MG TABLET PO SCH (08:46)
[2020-01-13] MEDS: GUAIFENESIN 600MG ER TABLET PO SCH ×2 (08:46→21:32)
[2020-01-13] MEDS: FOLIC ACID 1MG TABLET PO SCH (08:46)
[2020-01-13] MEDS: ASCORBIC ACID 500 MG TABLET PO SCH ×2 (08:46→21:32)
[2020-01-13] MEDS: CHLORDIAZEPOXIDE 25MG CAPSULE PO SCH (08:46)
[2020-01-13] MEDS: ZINC SULFATE 220 MG ( 50 ) CAPSULE PO SCH (08:46)
[2020-01-13] MEDS: RIFAXIMIN 550 MG TABLET PO SCH ×2 (08:46→21:32)
[2020-01-13] MEDS: POTASSIUM CHLORIDE 20MEQ TABLET SR PO SCH ×2 (08:46→17:56)
[2020-01-13] MEDS: SODIUM CHLORIDE 0.45% 1,000 ML IV SCH (08:47)
[2020-01-13] MEDS: LACTULOSE 20G/30ML UDC PO SCH (08:47)
[2020-01-13 12:00] VITALS: BP 104/72
[2020-01-13] MEDS: ACETAMINOPHEN 325MG TABLET PO PRN (13:19)
[2020-01-13 16:00] VITALS: BP 103/54
[2020-01-13 20:32] VITALS: BP 116/76
[2020-01-14 00:40] VITALS: BP 108/64
[2020-01-14] MEDS: SODIUM CHLORIDE 45ML SPRAY NS SCH ×4 (02:00→14:22)
[2020-01-14] MEDS: IPRATROPIUM/ALBUTEROL 0.5-3(2.5)MG/3ML NEB HHN SCH ×3 (03:25→14:52)
[2020-01-14 04:22] VITALS: BP 95/65
[2020-01-14] MEDS: SODIUM CHLORIDE 0.9% INJ 3ML FLUSH IVF SCH ×2 (06:46→14:00)
[2020-01-14] MEDS: SODIUM CHLORIDE 0.45% 1,000 ML IV SCH ×2 (06:49→10:37)
[2020-01-14 08:00] VITALS: BP 102/60
[2020-01-14] MEDS: RIFAXIMIN 550 MG TABLET PO SCH (09:16)
[2020-01-14] MEDS: ASCORBIC ACID 500 MG TABLET PO SCH (09:16)
[2020-01-14] MEDS: POTASSIUM CHLORIDE 20MEQ TABLET SR PO SCH (09:16)
[2020-01-14] MEDS: CHLORDIAZEPOXIDE 25MG CAPSULE PO SCH (09:16)
[2020-01-14] MEDS: ZINC SULFATE 220 MG ( 50 ) CAPSULE PO SCH (09:16)
[2020-01-14] MEDS: GUAIFENESIN 600MG ER TABLET PO SCH (09:16)
[2020-01-14] MEDS: MULTIVITAMINS,THER W-MINERALS TABLET PO SCH (09:16)
[2020-01-14] MEDS: FOLIC ACID 1MG TABLET PO SCH (09:16)
[2020-01-14] MEDS: FERROUS SULFATE 325MG TABLET PO SCH ×2 (09:17→14:16)
[2020-01-14] MEDS: LACTULOSE 20G/30ML UDC PO SCH (09:17)
[2020-01-14] MEDS: THIAMINE HCL 100MG TABLET PO SCH (09:17)
[2020-01-14 12:00] VITALS: BP 107/60
[2020-01-14 15:53] VITALS: BP 106/72
[2020-01-14 16:00] VITALS: BP 108/68
== END 2020-01-14 17:35 | disposition home or self-care (01) | DRG 720 ==
LOC: ER 17:01 → EDBEDREQ 19:12 → EDBEDREQTM 19:12 → 6WST 19:19 → ENRESERV 22:07 → 7WST 01-05 12:02 → 6WST 01-05 12:31 → 7WST 01-05 15:37 → 6WST 01-07 12:31
PROVIDERS: ADMIT Internal Medicine; ATTEND Internal Medicine
DX: A41.9 Sepsis, unspecified organism (principal); J96.01 Acute respiratory failure with hypoxia; D61.818 Other pancytopenia; E46 Unspecified protein-calorie malnutrition; E72.20 Disorder of urea cycle metabolism, unspecified; K85.20 Alcohol induced acute pancreatitis without necrosis or infection; J12.9 Viral pneumonia, unspecified; D69.6 Thrombocytopenia, unspecified; E66.01 Morbid (severe) obesity due to excess calories; I50.9 Heart failure, unspecified; D50.9 Iron deficiency anemia, unspecified; E87.6 Hypokalemia; K70.31 Alcoholic cirrhosis of liver with ascites; F10.229 Alcohol dependence with intoxication, unspecified; K76.0 Fatty (change of) liver, not elsewhere classified; K82.8 Other specified diseases of gallbladder; R04.0 Epistaxis; Y90.7 Blood alcohol level of 200-239 mg/100 ml; N30.00 Acute cystitis without hematuria; L53.8 Other specified erythematous conditions; R16.2 Hepatomegaly with splenomegaly, not elsewhere classified; R04.2 Hemoptysis; E88.09 Other disorders of plasma-protein metabolism, not elsewhere classified; D68.9 Coagulation defect, unspecified; Z68.41 Body mass index [BMI] 40.0-44.9, adult; Z03.818 Encounter for observation for suspected exposure to other biological agents ruled out; Z79.899 Other long term (current) drug therapy
CPT/HCPCS: 36415; 36600; 71045; 71275; 74176; 76705; 80048; 80053; 80076; 80305; 80320; 81003; 82140; 82150; 82375; 82728; 82805; 83540; 83550; 83880; 84703; 85025; 87015; 87045; 87427; 87449; 93005; 93970; 94640; 97162; 99285; J0456; J0696; J1940; J2060; J2270; J2405; J3480; J7060; Q9967; G0480; U0003-CS

== ENCOUNTER 2021-07-01 09:48 | Inpatient (IN) | payer MEDICAID, OTHER ==
[~2021-07-01] VITALS: Ht 160 cm; Wt 98.0 kg
[2021-07-01 10:36] LABS: CHLORIDE 91 mEq/L (98-107)
[2021-07-01 10:40] LABS: BASOPHILS % 0.6 % (0.0-2.0); EOSINOPHILS % 2.5 % (0.0-5.0); HEMATOCRIT. 31.2 % (36.0-48.0); HEMOGLOBIN. 9.7 g/dL (12.0-16.0); LYMPHOCYTES % 11.3 % (20.0-50.0); MEAN CORPUSCULAR HEMOGLOBIN 27.8 pg (28.0-32.0); MEAN CORPUSCULAR VOLUME 89.5 fL (81.0-99.0); MEAN PLATELET VOLUME 8.2 fl (7.4-10.4); MONOCYTES % 7.1 % (2.0-8.0); NEUTROPHILS % 78.5 % (40.0-76.0); PLATELET 51 x1000/uL (130-400); RED BLOOD CELL COUNT 3.49 mill/uL (4.2-5.4); RED CELL DISTRIBUTION WIDTH 23.3 % (11.6-14.6)
[2021-07-01] MEDS ORDERED: LIDOCAINE HCL/EPINEPHRINE 1%-EPI 1:100,000 20 ML VIAL INFIL ONE (11:45)
[2021-07-01 11:46] LABS: PLATELET ESTIMATE DECREASED
[2021-07-01] MEDS: POTASSIUM CHLORIDE 20MEQ/PACKET PO NR ×2 (15:37→15:39)
[2021-07-01 17:18] VITALS: BP 107/71
[2021-07-01 17:31] VITALS: BP 107/71
[2021-07-01] MEDS ORDERED: IPRATROPIUM/ALBUTEROL 0.5-3(2.5)MG/3ML NEB HHN PRN (18:15)
[2021-07-01] MEDS ORDERED: CLONIDINE 0.1MG TABLET PO PRN (18:15)
[2021-07-01] MEDS ORDERED: HYDROCODONE/ACETAMINOPHEN 5/325MG TABLET PO PRN (18:15)
[2021-07-01] MEDS ORDERED: FOLIC ACID 1 MG, THIAMINE HCL 100 MG, MVI, ADULT NO.1 10 ML in DEXTROSE 5% WATER 1,000 ML IV ONE (19:00)
[2021-07-01 20:00] VITALS: BP 115/77
[2021-07-01 22:00] VITALS: BP 119/70
[2021-07-01] MEDS: LORAZEPAM 0.5MG TABLET PO PRN (23:43)
[2021-07-02] VITALS (35 sets, daily range): BP systolic 80–134; BP diastolic 2–83
[2021-07-02] MEDS: LORAZEPAM 0.5MG TABLET PO PRN (05:59)
[2021-07-02] MEDS: METOPROLOL TARTRATE 25MG TABLET PO SCH ×2 (06:57→21:00)
[2021-07-02] MEDS ORDERED: VECURONIUM BROMIDE 10 MG/VIAL IV ONE (07:53)
[2021-07-02] MEDS ORDERED: ETOMIDATE 2MG/ML 10ML VIAL IV ONE (07:53)
[2021-07-02] MEDS ORDERED: SODIUM CHLORIDE 0.9% 10ML VIAL ONE (07:53)
[2021-07-02] MEDS ORDERED: EPINEPHRINE 0.1MG/ML (1:10,000) 10ML SYR ONE (07:53)
[2021-07-02 08:05] LABS: BASOPHILS % 0.3 % (0.0-2.0); MEAN CORPUSCULAR VOLUME 90.8 fL (81.0-99.0); MEAN PLATELET VOLUME 8.4 fl (7.4-10.4); MONOCYTES % 10.7 % (2.0-8.0); RED BLOOD CELL COUNT 2.75 mill/uL (4.2-5.4); RED CELL DISTRIBUTION WIDTH 23.9 % (11.6-14.6)
[2021-07-02 08:07] LABS: CHLORIDE 98 mEq/L (98-107)
[2021-07-02] MEDS: CHLORDIAZEPOXIDE 25MG CAPSULE PO SCH ×3 (08:08→23:11)
[2021-07-02] MEDS: ACETAMINOPHEN 325MG TABLET PO PRN (08:09)
[2021-07-02] MEDS ORDERED: NALOXONE HCL 0.4MG/ML VIAL IV PRN (08:30)
[2021-07-02] MEDS ORDERED: METOPROLOL TARTRATE 25MG TABLET PO SCH (09:00)
[2021-07-02] MEDS ORDERED: POTASSIUM CHLORIDE 20MEQ/PACKET PO NR ×3 (09:15→18:00)
[2021-07-02] MEDS ORDERED: LACTULOSE 20G/30ML UDC PO NR (09:30)
[2021-07-02] MEDS: DEXT 5%/0.45% NACL 1000ML 1,000 ML IV SCH ×2 (09:30→19:00)
[2021-07-02 09:49] LABS: TOTAL IRON BINDING CAPACITY 191 ug/dL (250-450)
[2021-07-02] MEDS ORDERED: MAGNESIUM 2 G PREMIX 50 ML IV ONE (10:00)
[2021-07-02] MEDS: FOLIC ACID 1MG TABLET PO SCH (10:05)
[2021-07-02] MEDS: THIAMINE HCL 100MG TABLET PO SCH (10:06)
[2021-07-02] MEDS: MULTIVITAMINS,THER W-MINERALS TABLET PO SCH (10:06)
[2021-07-02] MEDS ORDERED: LORAZEPAM 2MG/ML CPJ IV PRN ×2 (10:15→18:00)
[2021-07-02] MEDS: LACTULOSE 20G/30ML UDC PO SCH ×3 (10:30→23:11)
[2021-07-02 10:54] LABS: VITAMIN B12 SERUM > 2000.0 pg/mL (211-911)
[2021-07-02 11:32] LABS: D-DIMER 4.48 mg/L FEU (<0.50); INR 1.7; PROTHROMBIN TIME 17.7 sec (9.6-11.0)
[2021-07-02] MEDS ORDERED: MAGNESIUM 4 G PREMIX 100 ML IV NR (13:00)
[2021-07-02] MEDS: ERYTHROMYCIN BASE 0.5% OPHTH OINT 3.5GM BOTHEYE SCH ×2 (13:47→23:07)
[2021-07-02 14:37] LABS: HEPATITIS B SURFACE ANTIGEN NEGATIVE
[2021-07-02] MEDS: LEVETIRACETAM 500MG PREMIX 100 ML IV SCH (21:40)
[2021-07-02] MEDS ORDERED: PHYTONADIONE 10MG/ML AMP SUBCUT SCH (23:30)
[2021-07-03] VITALS (94 sets, daily range): BP systolic 51–143; BP diastolic 33–112
[2021-07-03] MEDS ORDERED: CEFEPIME 2,000 MG in DEXT 5% WATER 100 ML IV SCH (00:45)
[2021-07-03] MEDS ORDERED: ALBUMIN HUMAN 25GM/100ML (25%) IV PRN (01:00)
[2021-07-03] MEDS: CEFEPIME 1,000 MG in DEXTROSE 5% WATER 50 ML IV SCH ×3 (01:43→17:20)
[2021-07-03 05:32] LABS: BASOPHILS % 0.4 % (0.0-2.0); EOSINOPHILS % 0.9 % (0.0-5.0); HEMATOCRIT. 26.8 % (36.0-48.0); HEMOGLOBIN. 8.4 g/dL (12.0-16.0); LYMPHOCYTES % 12.4 % (20.0-50.0); MEAN CORPUSCULAR HEMOGLOBIN 29.3 pg (28.0-32.0); MEAN PLATELET VOLUME 9.1 fl (7.4-10.4); MONOCYTES % 9.7 % (2.0-8.0); NEUTROPHILS % 76.6 % (40.0-76.0); RED BLOOD CELL COUNT 2.86 mill/uL (4.2-5.4); RED CELL DISTRIBUTION WIDTH 24.3 % (11.6-14.6)
[2021-07-03] MEDS: LACTULOSE 20G/30ML UDC PO SCH ×3 (05:33→21:27)
[2021-07-03] MEDS: CHLORDIAZEPOXIDE 25MG CAPSULE PO SCH ×3 (05:33→21:27)
[2021-07-03] MEDS: ERYTHROMYCIN BASE 0.5% OPHTH OINT 3.5GM BOTHEYE SCH ×3 (05:33→21:27)
[2021-07-03 05:49] LABS: CHLORIDE 100 mEq/L (98-107)
[2021-07-03 05:59] LABS: PHOSPHORUS 2.2 mg/dL (2.5-4.9)
[2021-07-03] MEDS: LEVETIRACETAM 500MG PREMIX 100 ML IV SCH ×2 (08:23→20:02)
[2021-07-03] MEDS: THIAMINE HCL 100MG TABLET PO SCH (08:23)
[2021-07-03] MEDS: MULTIVITAMINS,THER W-MINERALS TABLET PO SCH (08:23)
[2021-07-03] MEDS: METOPROLOL TARTRATE 25MG TABLET PO SCH ×2 (08:23→20:02)
[2021-07-03] MEDS: FOLIC ACID 1MG TABLET PO SCH (08:23)
[2021-07-03 08:26] LABS: PLATELET 36 x1000/uL (130-400)
[2021-07-03 08:27] LABS: PLATELET ESTIMATE MARKEDLY DECREASED
[2021-07-03] MEDS ORDERED: POTASSIUM CHLORIDE INJ 40 MEQ in DEXT 5% WATER 250 ML IV ONE ×2 (08:45→13:00)
[2021-07-03] MEDS: KCL 20MEQ/100ML PREMIX 100 ML IV SCH ×4 (09:55→17:21)
[2021-07-03] MEDS ORDERED: MAGNESIUM 1 G PREMIX 100 ML IV NR (10:00)
[2021-07-03 11:21] LABS: BG BASE EXCESS 6.9 mmol/L (-2.0-2.0); BG CARBOXYHEMOGLOBIN 1.6 % (0.5-1.5); BG FRACTION INSPIRED OXYGEN 36; BG HCO3 ACT 29.7 mmol/L (22.0-26.0); BG METHEMOGLOBIN 0.1 % (0.0-1.5); BG OXYGEN SATURATION 92.9 % (92.0-98.5); BG OXYHEMOGLOBIN 91.3 % (94.0-97.0); BG PH 7.546 (7.350-7.450); BG PO2 64.5 mmHg (75.0-100.0); BG SAMPLE SITE RIGHT RADIAL; BG TOTAL HEMOGLOBIN 8.8 g/dL (12.0-18.0); BG VENT MODE MASK - VENTI
[2021-07-03 12:49] LABS: INR 1.8; PROTHROMBIN TIME 18.6 sec (9.6-11.0)
[2021-07-03 13:10] LABS: HCG SCREEN NEGATIVE
[2021-07-03] MEDS ORDERED: PHYTONADIONE 10MG/ML AMP SUBCUT NR (13:15)
[2021-07-03] MEDS: DEXT 5%/0.45% NACL 1000ML 1,000 ML IV SCH (13:48)
[2021-07-03] MEDS ORDERED: IOHEXOL-350 100 ML BOTTLE ONE (16:51)
[2021-07-03] MEDS: ACETAMINOPHEN 325MG TABLET PO PRN (21:27)
[2021-07-04] VITALS (14 sets, daily range): BP systolic 85–115; BP diastolic 44–78
[2021-07-04] MEDS: CEFEPIME 1,000 MG in DEXTROSE 5% WATER 50 ML IV SCH ×3 (02:03→17:21)
[2021-07-04] MEDS: LACTULOSE 20G/30ML UDC PO SCH ×3 (06:01→21:23)
[2021-07-04] MEDS: CHLORDIAZEPOXIDE 25MG CAPSULE PO SCH ×3 (06:02→21:23)
[2021-07-04] MEDS: ERYTHROMYCIN BASE 0.5% OPHTH OINT 3.5GM BOTHEYE SCH ×3 (06:02→21:23)
[2021-07-04 08:30] LABS: BASOPHILS % 0.2 % (0.0-2.0); EOSINOPHILS % 2.5 % (0.0-5.0); HEMATOCRIT. 26.9 % (36.0-48.0); HEMOGLOBIN. 8.3 g/dL (12.0-16.0); LYMPHOCYTES % 10.5 % (20.0-50.0); MEAN CORPUSCULAR HEMOGLOBIN 29.6 pg (28.0-32.0); MEAN CORPUSCULAR VOLUME 95.8 fL (81.0-99.0); MEAN PLATELET VOLUME 8.7 fl (7.4-10.4); MONOCYTES % 11.7 % (2.0-8.0); NEUTROPHILS % 75.1 % (40.0-76.0); PLATELET 57 x1000/uL (130-400); RED CELL DISTRIBUTION WIDTH 24.6 % (11.6-14.6)
[2021-07-04 08:51] LABS: CHLORIDE 100 mEq/L (98-107)
[2021-07-04] MEDS: METOPROLOL TARTRATE 25MG TABLET PO SCH ×2 (09:00→20:17)
[2021-07-04] MEDS: LEVETIRACETAM 500MG PREMIX 100 ML IV SCH ×2 (09:57→20:17)
[2021-07-04] MEDS: FOLIC ACID 1MG TABLET PO SCH (09:57)
[2021-07-04] MEDS: MULTIVITAMINS,THER W-MINERALS TABLET PO SCH (09:57)
[2021-07-04] MEDS: THIAMINE HCL 100MG TABLET PO SCH (09:57)
[2021-07-04 10:13] LABS: PLATELET 29 x1000/uL (130-400)
[2021-07-04] MEDS ORDERED: KCL 20MEQ/100ML PREMIX 100 ML IV NR ×2 (11:00→13:00)
[2021-07-04] MEDS: DEXT 5%/0.45% NACL 1000ML 1,000 ML IV SCH ×2 (12:30→20:15)
[2021-07-04] MEDS ORDERED: LIDOCAINE HCL 1% 10 MG/ML 10ML VIAL ONE (13:04)
[2021-07-04] MEDS ORDERED: SODIUM BICARBONATE 4% (2.4MEQ) 5ML VIAL IV ONE (13:04)
[2021-07-04 19:55] LABS: CHLORIDE 103 mEq/L (98-107)
[2021-07-05] VITALS (12 sets, daily range): BP systolic 75–119; BP diastolic 47–65
[2021-07-05] MEDS: CEFEPIME 1,000 MG in DEXTROSE 5% WATER 50 ML IV SCH ×3 (02:45→17:34)
[2021-07-05] MEDS: CHLORDIAZEPOXIDE 25MG CAPSULE PO SCH ×3 (06:00→22:47)
[2021-07-05] MEDS: LACTULOSE 20G/30ML UDC PO SCH ×3 (06:00→22:47)
[2021-07-05] MEDS: DEXT 5%/0.45% NACL 1000ML 1,000 ML IV SCH ×2 (06:12→17:34)
[2021-07-05] MEDS: ERYTHROMYCIN BASE 0.5% OPHTH OINT 3.5GM BOTHEYE SCH ×3 (06:15→22:47)
[2021-07-05 08:45] LABS: BASOPHILS % 1.1 % (0.0-2.0); EOSINOPHILS % 3.8 % (0.0-5.0); HEMOGLOBIN. 8.7 g/dL (12.0-16.0); LYMPHOCYTES % 14.7 % (20.0-50.0); MEAN CORPUSCULAR HEMOGLOBIN 30.4 pg (28.0-32.0); MEAN CORPUSCULAR VOLUME 97.7 fL (81.0-99.0); MEAN PLATELET VOLUME 8.7 fl (7.4-10.4); MONOCYTES % 13.8 % (2.0-8.0); NEUTROPHILS % 66.6 % (40.0-76.0); PLATELET 63 x1000/uL (130-400); RED BLOOD CELL COUNT 2.87 mill/uL (4.2-5.4); RED CELL DISTRIBUTION WIDTH 24.1 % (11.6-14.6)
[2021-07-05 08:51] LABS: INR 1.7; PARTIAL THROMBOPLASTIN TIME 38.1 sec (23.4-31.0); PROTHROMBIN TIME 17.9 sec (9.6-11.0)
[2021-07-05 08:58] LABS: CHLORIDE 105 mEq/L (98-107)
[2021-07-05] MEDS: METOPROLOL TARTRATE 25MG TABLET PO SCH ×2 (09:00→20:27)
[2021-07-05] MEDS: LEVETIRACETAM 500MG PREMIX 100 ML IV SCH ×2 (09:55→20:37)
[2021-07-05] MEDS: MULTIVITAMINS,THER W-MINERALS TABLET PO SCH (12:03)
[2021-07-05] MEDS: FOLIC ACID 1MG TABLET PO SCH (12:04)
[2021-07-05] MEDS: THIAMINE HCL 100MG TABLET PO SCH (12:04)
[2021-07-05] MEDS: NYSTATIN POWDER 15GM TOP SCH ×2 (17:35→17:42)
[2021-07-05] MEDS: RIFAXIMIN 550 MG TABLET PO SCH (20:27)
[2021-07-06] VITALS (14 sets, daily range): BP systolic 88–112; BP diastolic 43–71
[2021-07-06] MEDS: DEXT 5%/0.45% NACL 1000ML 1,000 ML IV SCH ×3 (02:41→21:36)
[2021-07-06] MEDS: CEFEPIME 1,000 MG in DEXTROSE 5% WATER 50 ML IV SCH ×3 (02:41→17:25)
[2021-07-06] MEDS: ERYTHROMYCIN BASE 0.5% OPHTH OINT 3.5GM BOTHEYE SCH ×3 (05:50→21:48)
[2021-07-06] MEDS: LACTULOSE 20G/30ML UDC PO SCH ×3 (05:50→21:34)
[2021-07-06] MEDS: CHLORDIAZEPOXIDE 25MG CAPSULE PO SCH ×3 (05:50→21:35)
[2021-07-06 07:20] LABS: HEMATOCRIT 28.6 % (36.0-48.0); HEMOGLOBIN 8.9 g/dL (12.0-16.0); PLATELET 71 x1000/uL (130-400); RED BLOOD CELL COUNT 2.86 mill/uL (4.2-5.4); RED CELL DISTRIBUTION WIDTH 25.2 % (11.6-14.6)
[2021-07-06 07:56] LABS: FERRITIN 26 ng/mL (10-291)
[2021-07-06 08:03] LABS: CHLORIDE 107 mEq/L (98-107)
[2021-07-06 08:11] LABS: TOTAL IRON BINDING CAPACITY 181 ug/dL (250-450)
[2021-07-06 08:18] LABS: VITAMIN B12 SERUM > 2000.0 pg/mL (211-911)
[2021-07-06] MEDS: LEVETIRACETAM 500MG PREMIX 100 ML IV SCH ×2 (09:22→21:34)
[2021-07-06] MEDS: THIAMINE HCL 100MG TABLET PO SCH (09:22)
[2021-07-06] MEDS: FOLIC ACID 1MG TABLET PO SCH (09:22)
[2021-07-06] MEDS: MULTIVITAMINS,THER W-MINERALS TABLET PO SCH (09:22)
[2021-07-06] MEDS: METOPROLOL TARTRATE 25MG TABLET PO SCH ×2 (09:22→21:00)
[2021-07-06] MEDS: NYSTATIN POWDER 15GM TOP SCH ×3 (09:22→17:24)
[2021-07-06] MEDS: RIFAXIMIN 550 MG TABLET PO SCH ×2 (09:24→21:35)
[2021-07-06] MEDS ORDERED: POTASSIUM CHLORIDE 20MEQ/PACKET PO NR (12:15)
[2021-07-06] MEDS ORDERED: POTASSIUM CHLORIDE 20MEQ TABLET SR PO NR (19:45)
[2021-07-07] VITALS (14 sets, daily range): BP systolic 100–121; BP diastolic 52–74
[2021-07-07] MEDS: CEFEPIME 1,000 MG in DEXTROSE 5% WATER 50 ML IV SCH ×3 (01:07→17:47)
[2021-07-07] MEDS: IRON SUCROSE COMPLEX 100 MG/5 ML ML IV SCH ×2 (01:07→21:44)
[2021-07-07] MEDS: DEXT 5%/0.45% NACL 1000ML 1,000 ML IV SCH ×3 (04:12→21:45)
[2021-07-07] MEDS: CHLORDIAZEPOXIDE 25MG CAPSULE PO SCH (05:13)
[2021-07-07] MEDS: ERYTHROMYCIN BASE 0.5% OPHTH OINT 3.5GM BOTHEYE SCH ×3 (05:13→21:46)
[2021-07-07] MEDS: LACTULOSE 20G/30ML UDC PO SCH ×3 (05:13→21:44)
[2021-07-07 06:52] LABS: HEMATOCRIT. 28.7 % (36.0-48.0); HEMOGLOBIN. 8.9 g/dL (12.0-16.0); MEAN CORPUSCULAR HEMOGLOBIN 30.6 pg (28.0-32.0); MEAN CORPUSCULAR VOLUME 98.4 fL (81.0-99.0); MEAN PLATELET VOLUME 8.3 fl (7.4-10.4); PLATELET 82 x1000/uL (130-400); RED BLOOD CELL COUNT 2.92 mill/uL (4.2-5.4); RED CELL DISTRIBUTION WIDTH 24.2 % (11.6-14.6)
[2021-07-07] MEDS: RIFAXIMIN 550 MG TABLET PO SCH ×2 (07:57→21:44)
[2021-07-07] MEDS: MULTIVITAMINS,THER W-MINERALS TABLET PO SCH (07:57)
[2021-07-07] MEDS: FOLIC ACID 1MG TABLET PO SCH (07:57)
[2021-07-07] MEDS: LEVETIRACETAM 500MG PREMIX 100 ML IV SCH ×2 (07:57→21:44)
[2021-07-07] MEDS: THIAMINE HCL 100MG TABLET PO SCH (07:58)
[2021-07-07] MEDS: NYSTATIN POWDER 15GM TOP SCH ×3 (07:59→16:40)
[2021-07-07] MEDS: METOPROLOL TARTRATE 25MG TABLET PO SCH ×2 (07:59→21:44)
[2021-07-07 08:45] LABS: CHLORIDE 108 mEq/L (98-107)
[2021-07-07] MEDS ORDERED: POTASSIUM CHLORIDE 20MEQ/PACKET PO NR (10:00)
[2021-07-07] MEDS ORDERED: MAGNESIUM 4 G PREMIX 100 ML IV NR (11:30)
[2021-07-07] MEDS ORDERED: POTASSIUM CHLORIDE 20MEQ/PACKET PO SCH (16:00)
[2021-07-07 21:15] LABS: PLATELET ESTIMATE DECREASED
[2021-07-08] VITALS (17 sets, daily range): BP systolic 87–121; BP diastolic 49–66
[2021-07-08] MEDS: DEXT 5%/0.45% NACL 1000ML 1,000 ML IV SCH ×3 (04:12→20:46)
[2021-07-08] MEDS: ERYTHROMYCIN BASE 0.5% OPHTH OINT 3.5GM BOTHEYE SCH ×3 (06:34→20:46)
[2021-07-08] MEDS: LACTULOSE 20G/30ML UDC PO SCH ×3 (06:34→20:45)
[2021-07-08 07:03] LABS: CHLORIDE 111 mEq/L (98-107)
[2021-07-08] MEDS: RIFAXIMIN 550 MG TABLET PO SCH ×2 (08:24→20:45)
[2021-07-08] MEDS: FOLIC ACID 1MG TABLET PO SCH (08:24)
[2021-07-08] MEDS: MULTIVITAMINS,THER W-MINERALS TABLET PO SCH (08:24)
[2021-07-08] MEDS: THIAMINE HCL 100MG TABLET PO SCH (08:25)
[2021-07-08] MEDS: LEVETIRACETAM 500MG PREMIX 100 ML IV SCH ×2 (08:25→20:47)
[2021-07-08] MEDS: NYSTATIN POWDER 15GM TOP SCH ×3 (08:26→17:00)
[2021-07-08] MEDS: METOPROLOL TARTRATE 25MG TABLET PO SCH ×2 (09:00→20:45)
[2021-07-08 09:57] LABS: HEMATOCRIT. 27.5 % (36.0-48.0); HEMOGLOBIN. 8.2 g/dL (12.0-16.0); MEAN CORPUSCULAR HEMOGLOBIN 30.8 pg (28.0-32.0); MEAN CORPUSCULAR VOLUME 103.6 fL (81.0-99.0); MEAN PLATELET VOLUME 8.2 fl (7.4-10.4); PLATELET 87 x1000/uL (130-400); RED BLOOD CELL COUNT 2.65 mill/uL (4.2-5.4); RED CELL DISTRIBUTION WIDTH 23.5 % (11.6-14.6)
[2021-07-08 20:18] LABS: PLATELET ESTIMATE DECREASED
[2021-07-08] MEDS: ACETAMINOPHEN 325MG TABLET PO PRN (20:56)
[2021-07-09] VITALS (14 sets, daily range): BP systolic 90–140; BP diastolic 40–73
[2021-07-09 06:11] LABS: BASOPHILS % 0.8 % (0.0-2.0); CHLORIDE 111 mEq/L (98-107); HEMATOCRIT. 29.7 % (36.0-48.0); HEMOGLOBIN. 9.3 g/dL (12.0-16.0); LYMPHOCYTES % 13.6 % (20.0-50.0); MEAN CORPUSCULAR HEMOGLOBIN 31.8 pg (28.0-32.0); MEAN CORPUSCULAR VOLUME 101.5 fL (81.0-99.0); MONOCYTES % 13.5 % (2.0-8.0); NEUTROPHILS % 68.1 % (40.0-76.0); RED BLOOD CELL COUNT 2.93 mill/uL (4.2-5.4); RED CELL DISTRIBUTION WIDTH 23.7 % (11.6-14.6)
[2021-07-09] MEDS: LACTULOSE 20G/30ML UDC PO SCH ×3 (06:49→21:30)
[2021-07-09] MEDS: DEXT 5%/0.45% NACL 1000ML 1,000 ML IV SCH ×2 (06:49→21:31)
[2021-07-09] MEDS: ERYTHROMYCIN BASE 0.5% OPHTH OINT 3.5GM BOTHEYE SCH ×2 (06:49→14:05)
[2021-07-09] MEDS: RIFAXIMIN 550 MG TABLET PO SCH ×2 (08:40→21:30)
[2021-07-09] MEDS: MULTIVITAMINS,THER W-MINERALS TABLET PO SCH (08:40)
[2021-07-09] MEDS: FOLIC ACID 1MG TABLET PO SCH (08:40)
[2021-07-09] MEDS: LEVETIRACETAM 500MG PREMIX 100 ML IV SCH ×2 (08:40→21:53)
[2021-07-09] MEDS: THIAMINE HCL 100MG TABLET PO SCH (08:40)
[2021-07-09] MEDS: METOPROLOL TARTRATE 25MG TABLET PO SCH ×2 (08:42→21:31)
[2021-07-09] MEDS: NYSTATIN POWDER 15GM TOP SCH ×3 (08:51→17:00)
[2021-07-09 10:35] LABS: PLATELET 104 x1000/uL (130-400)
[2021-07-09 11:10] LABS: BG BASE EXCESS -2.5 mmol/L (-2.0-2.0); BG CARBOXYHEMOGLOBIN 1.8 % (0.5-1.5); BG DEOXYHEMOGLOBIN 8.7 % (0.0-5.0); BG FRACTION INSPIRED OXYGEN 21; BG HCO3 ACT 22.9 mmol/L (22.0-26.0); BG METHEMOGLOBIN 0.1 % (0.0-1.5); BG OXYGEN SATURATION 91.1 % (92.0-98.5); BG OXYHEMOGLOBIN 89.4 % (94.0-97.0); BG PCO2 42.2 mmHg (35.0-45.0); BG PH 7.353 (7.350-7.450); BG PO2 65.4 mmHg (75.0-100.0); BG SAMPLE SITE LEFT BRACHIAL; BG TOTAL HEMOGLOBIN 8.9 g/dL (12.0-18.0); BG VENT MODE ROOM AIR
[2021-07-10] VITALS (10 sets, daily range): BP systolic 102–122; BP diastolic 53–71
[2021-07-10] MEDS: LACTULOSE 20G/30ML UDC PO SCH ×3 (06:38→22:11)
[2021-07-10] MEDS: RIFAXIMIN 550 MG TABLET PO SCH ×2 (08:51→20:48)
[2021-07-10] MEDS: THIAMINE HCL 100MG TABLET PO SCH (08:51)
[2021-07-10] MEDS: MULTIVITAMINS,THER W-MINERALS TABLET PO SCH (08:51)
[2021-07-10] MEDS: METOPROLOL TARTRATE 25MG TABLET PO SCH ×2 (08:52→20:48)
[2021-07-10] MEDS: LEVETIRACETAM 500MG PREMIX 100 ML IV SCH ×2 (08:52→20:47)
[2021-07-10] MEDS: NYSTATIN POWDER 15GM TOP SCH ×3 (08:52→18:17)
[2021-07-10] MEDS: FOLIC ACID 1MG TABLET PO SCH (08:52)
[2021-07-10] MEDS: DEXT 5%/0.45% NACL 1000ML 1,000 ML IV SCH ×2 (12:38→20:49)
[2021-07-11 04:00] VITALS: BP 95/47
[2021-07-11] MEDS: DEXT 5%/0.45% NACL 1000ML 1,000 ML IV SCH ×3 (05:01→20:12)
[2021-07-11] MEDS: LACTULOSE 20G/30ML UDC PO SCH ×3 (06:18→21:00)
[2021-07-11 06:30] LABS: BASOPHILS % 0.9 % (0.0-2.0); EOSINOPHILS % 2.3 % (0.0-5.0); HEMATOCRIT. 27.1 % (36.0-48.0); HEMOGLOBIN. 8.7 g/dL (12.0-16.0); LYMPHOCYTES % 10.6 % (20.0-50.0); MEAN CORPUSCULAR HEMOGLOBIN 31.7 pg (28.0-32.0); MEAN CORPUSCULAR VOLUME 98.8 fL (81.0-99.0); MONOCYTES % 10.2 % (2.0-8.0); PLATELET 171 x1000/uL (130-400); RED BLOOD CELL COUNT 2.74 mill/uL (4.2-5.4); RED CELL DISTRIBUTION WIDTH 23.1 % (11.6-14.6)
[2021-07-11 08:00] VITALS: BP 103/44
[2021-07-11] MEDS: METOPROLOL TARTRATE 25MG TABLET PO SCH ×2 (09:00→20:21)
[2021-07-11] MEDS: LEVETIRACETAM 500MG PREMIX 100 ML IV SCH ×2 (09:26→20:59)
[2021-07-11] MEDS: THIAMINE HCL 100MG TABLET PO SCH (09:27)
[2021-07-11] MEDS: MULTIVITAMINS,THER W-MINERALS TABLET PO SCH (09:27)
[2021-07-11] MEDS: NYSTATIN POWDER 15GM TOP SCH ×3 (09:27→17:08)
[2021-07-11] MEDS: FOLIC ACID 1MG TABLET PO SCH (09:27)
[2021-07-11 10:00] VITALS: BP 107/53
[2021-07-11 12:00] VITALS: BP 97/46
[2021-07-11 16:00] VITALS: BP 101/52
[2021-07-11 20:00] VITALS: BP 93/57
[2021-07-12] VITALS (26 sets, daily range): BP systolic 80–161; BP diastolic 50–113
[2021-07-12] MEDS: DEXT 5%/0.45% NACL 1000ML 1,000 ML IV SCH ×3 (04:44→22:00)
[2021-07-12] MEDS: LACTULOSE 20G/30ML UDC PO SCH ×3 (05:08→21:43)
[2021-07-12 07:19] LABS: BASOPHILS % 0.7 % (0.0-2.0); EOSINOPHILS % 1.8 % (0.0-5.0); HEMATOCRIT. 28.3 % (36.0-48.0); HEMOGLOBIN. 9.1 g/dL (12.0-16.0); LYMPHOCYTES % 8.2 % (20.0-50.0); MEAN CORPUSCULAR HEMOGLOBIN 32.7 pg (28.0-32.0); MEAN CORPUSCULAR VOLUME 102.1 fL (81.0-99.0); MONOCYTES % 9.2 % (2.0-8.0); NEUTROPHILS % 80.1 % (40.0-76.0); RED BLOOD CELL COUNT 2.77 mill/uL (4.2-5.4)
[2021-07-12] MEDS: METOPROLOL TARTRATE 25MG TABLET PO SCH ×2 (09:00→21:00)
[2021-07-12 09:18] LABS: MEAN PLATELET VOLUME 8.1 fl (7.4-10.4); PLATELET 171 x1000/uL (130-400)
[2021-07-12] MEDS: LEVETIRACETAM 500MG PREMIX 100 ML IV SCH ×2 (09:55→21:58)
[2021-07-12] MEDS: NYSTATIN POWDER 15GM TOP SCH ×3 (10:07→16:35)
[2021-07-12] MEDS: THIAMINE HCL 100MG TABLET PO SCH (10:07)
[2021-07-12] MEDS: FOLIC ACID 1MG TABLET PO SCH (10:07)
[2021-07-12] MEDS: MULTIVITAMINS,THER W-MINERALS TABLET PO SCH (10:08)
[2021-07-12] MEDS ORDERED: ALBUMIN HUMAN 12.5GM/50ML (25%) IV NR (13:00)
[2021-07-12] MEDS ORDERED: ALBUMIN HUMAN 25GM/100ML (25%) IV ONE (16:30)
[2021-07-12] MEDS: MIDODRINE HCL 5MG TABLET PO SCH ×2 (16:35→17:00)
[2021-07-12 16:58] LABS: BG BASE EXCESS -11.7 mmol/L (-2.0-2.0); BG CARBOXYHEMOGLOBIN 0.5 % (0.5-1.5); BG HCO3 ACT 14.6 mmol/L (22.0-26.0); BG METHEMOGLOBIN 0.2 % (0.0-1.5); BG OXYHEMOGLOBIN 94.3 % (94.0-97.0); BG PCO2 34.7 mmHg (35.0-45.0); BG PH 7.242 (7.350-7.450); BG PO2 88.1 mmHg (75.0-100.0); BG SAMPLE SITE RIGHT RADIAL; BG TOTAL HEMOGLOBIN 8.6 g/dL (12.0-18.0); BG VENT MODE NASAL CANNULA
[2021-07-12] MEDS: VASOPRESSIN 20 UNIT in SODIUM CHLORIDE 0.9% 99 ML IV PRN (19:30)
[2021-07-12] MEDS: PHENYLEPHRINE 50 MG in DEXT 5% WATER 245 ML IV PRN (21:37)
[2021-07-13] VITALS (83 sets, daily range): BP systolic 82–150; BP diastolic 33–83
[2021-07-13] MEDS: VASOPRESSIN 20 UNIT in SODIUM CHLORIDE 0.9% 99 ML IV PRN ×2 (03:46→18:02)
[2021-07-13 05:24] LABS: HEMATOCRIT. 27.6 % (36.0-48.0); HEMOGLOBIN. 8.6 g/dL (12.0-16.0); MEAN CORPUSCULAR HEMOGLOBIN 31.7 pg (28.0-32.0); MEAN CORPUSCULAR VOLUME 101.9 fL (81.0-99.0); MEAN PLATELET VOLUME 7.7 fl (7.4-10.4); PLATELET 232 x1000/uL (130-400); RED BLOOD CELL COUNT 2.71 mill/uL (4.2-5.4); RED CELL DISTRIBUTION WIDTH 21.7 % (11.6-14.6)
[2021-07-13 05:30] LABS: CHLORIDE 111 mEq/L (98-107)
[2021-07-13 05:43] LABS: CREATINE KINASE 189 IU/L (26-192)
[2021-07-13 05:46] LABS: CREATINE KINASE MB FRACTION 4.6 ng/mL (0.5-3.6)
[2021-07-13 05:49] LABS: INR 1.6; PARTIAL THROMBOPLASTIN TIME 42.6 sec (23.4-31.0); PROTHROMBIN TIME 16.4 sec (9.6-11.0)
[2021-07-13] MEDS: LACTULOSE 20G/30ML UDC PO SCH ×3 (06:38→22:23)
[2021-07-13] MEDS: PHENYLEPHRINE 50 MG in DEXT 5% WATER 245 ML IV PRN (07:26)
[2021-07-13] MEDS: METOPROLOL TARTRATE 25MG TABLET PO SCH ×2 (09:00→21:00)
[2021-07-13 09:19] LABS: PLATELET ESTIMATE NORMAL
[2021-07-13] MEDS ORDERED: SODIUM BICARBONATE 4% (2.4MEQ) 5ML VIAL IV ONE (09:39)
[2021-07-13] MEDS ORDERED: LIDOCAINE HCL 1% 10 MG/ML 10ML VIAL ONE ×2 (09:39→10:00)
[2021-07-13] MEDS: LEVETIRACETAM 500MG PREMIX 100 ML IV SCH ×2 (09:43→21:30)
[2021-07-13] MEDS: MULTIVITAMINS,THER W-MINERALS TABLET PO SCH (09:44)
[2021-07-13] MEDS: MIDODRINE HCL 5MG TABLET PO SCH ×3 (09:44→18:00)
[2021-07-13] MEDS: THIAMINE HCL 100MG TABLET PO SCH (09:44)
[2021-07-13] MEDS: FOLIC ACID 1MG TABLET PO SCH (09:45)
[2021-07-13] MEDS: DEXT 5%/0.45% NACL 1000ML 1,000 ML IV SCH ×2 (09:46→18:59)
[2021-07-13] MEDS: NYSTATIN POWDER 15GM TOP SCH ×3 (09:47→17:00)
[2021-07-13] MEDS ORDERED: ALBUMIN HUMAN 25GM/100ML (25%) IV PRN (21:30)
[2021-07-14] VITALS (68 sets, daily range): BP systolic 85–130; BP diastolic 23–73
[2021-07-14] MEDS: PHENYLEPHRINE 50 MG in DEXT 5% WATER 245 ML IV PRN ×2 (01:44→20:10)
[2021-07-14] MEDS: LACTULOSE 20G/30ML UDC PO SCH ×3 (05:36→21:15)
[2021-07-14 05:56] LABS: BASOPHILS % 0.9 % (0.0-2.0); HEMATOCRIT. 25.3 % (36.0-48.0); HEMOGLOBIN. 8.1 g/dL (12.0-16.0); LYMPHOCYTES % 9.6 % (20.0-50.0); MEAN CORPUSCULAR HEMOGLOBIN 32.1 pg (28.0-32.0); MEAN CORPUSCULAR VOLUME 99.6 fL (81.0-99.0); MEAN PLATELET VOLUME 7.7 fl (7.4-10.4); NEUTROPHILS % 79.5 % (40.0-76.0); PLATELET 149 x1000/uL (130-400); RED BLOOD CELL COUNT 2.54 mill/uL (4.2-5.4)
[2021-07-14 06:20] LABS: CHLORIDE 112 mEq/L (98-107)
[2021-07-14 06:28] LABS: PHOSPHORUS 3.6 mg/dL (2.5-4.9)
[2021-07-14] MEDS: DEXT 5%/0.45% NACL 1000ML 1,000 ML IV SCH ×3 (06:45→20:13)
[2021-07-14 08:49] LABS: BG BASE EXCESS -7.9 mmol/L (-2.0-2.0); BG CARBOXYHEMOGLOBIN 1.2 % (0.5-1.5); BG DEOXYHEMOGLOBIN 3.6 % (0.0-5.0); BG FRACTION INSPIRED OXYGEN 28; BG HCO3 ACT 17.6 mmol/L (22.0-26.0); BG METHEMOGLOBIN 0.3 % (0.0-1.5); BG OXYGEN SATURATION 96.3 % (92.0-98.5); BG OXYHEMOGLOBIN 94.9 % (94.0-97.0); BG PCO2 35.6 mmHg (35.0-45.0); BG PH 7.311 (7.350-7.450); BG PO2 87.9 mmHg (75.0-100.0); BG SAMPLE SITE LEFT RADIAL; BG TOTAL HEMOGLOBIN 9.3 g/dL (12.0-18.0); BG VENT MODE NASAL CANNULA
[2021-07-14] MEDS: METOPROLOL TARTRATE 25MG TABLET PO SCH ×2 (09:00→20:09)
[2021-07-14] MEDS: LEVETIRACETAM 500MG PREMIX 100 ML IV SCH ×2 (09:23→20:09)
[2021-07-14] MEDS ORDERED: POTASSIUM PHOS,M-BASIC-D-BASIC 30 MMOL in SODIUM CHLORIDE 0.9% 500 ML IV NR (09:30)
[2021-07-14] MEDS: MULTIVITAMINS,THER W-MINERALS TABLET PO SCH (09:32)
[2021-07-14] MEDS: FOLIC ACID 1MG TABLET PO SCH (09:33)
[2021-07-14] MEDS: MIDODRINE HCL 5MG TABLET PO SCH ×3 (09:33→17:22)
[2021-07-14] MEDS: THIAMINE HCL 100MG TABLET PO SCH (09:33)
[2021-07-14] MEDS: NYSTATIN POWDER 15GM TOP SCH ×3 (09:41→17:22)
[2021-07-14] MEDS ORDERED: MAGNESIUM 2 G PREMIX 50 ML IV NR (12:30)
[2021-07-15] VITALS (88 sets, daily range): BP systolic 79–128; BP diastolic 37–82
[2021-07-15 05:37] LABS: BASOPHILS % 0.3 % (0.0-2.0); EOSINOPHILS % 3.2 % (0.0-5.0); HEMATOCRIT. 25.1 % (36.0-48.0); HEMOGLOBIN. 8.1 g/dL (12.0-16.0); LYMPHOCYTES % 10.2 % (20.0-50.0); MEAN CORPUSCULAR HEMOGLOBIN 32.8 pg (28.0-32.0); MEAN PLATELET VOLUME 7.9 fl (7.4-10.4); MONOCYTES % 8.7 % (2.0-8.0); NEUTROPHILS % 77.6 % (40.0-76.0); PLATELET 125 x1000/uL (130-400); RED BLOOD CELL COUNT 2.46 mill/uL (4.2-5.4); RED CELL DISTRIBUTION WIDTH 22.3 % (11.6-14.6)
[2021-07-15 05:49] LABS: CHLORIDE 114 mEq/L (98-107)
[2021-07-15 06:00] LABS: PHOSPHORUS 3.1 mg/dL (2.5-4.9)
[2021-07-15] MEDS: LACTULOSE 20G/30ML UDC PO SCH ×3 (06:35→21:28)
[2021-07-15] MEDS: METOPROLOL TARTRATE 25MG TABLET PO SCH ×2 (08:17→20:45)
[2021-07-15] MEDS: FOLIC ACID 1MG TABLET PO SCH (08:17)
[2021-07-15] MEDS: MULTIVITAMINS,THER W-MINERALS TABLET PO SCH (08:18)
[2021-07-15] MEDS: RIFAXIMIN 550 MG TABLET PO SCH ×2 (08:18→20:45)
[2021-07-15] MEDS: MIDODRINE HCL 5MG TABLET PO SCH ×3 (08:19→18:11)
[2021-07-15] MEDS: LEVETIRACETAM 500MG PREMIX 100 ML IV SCH ×2 (08:19→20:44)
[2021-07-15] MEDS: THIAMINE HCL 100MG TABLET PO SCH (08:19)
[2021-07-15] MEDS: DEXT 5%/0.45% NACL 1000ML 1,000 ML IV SCH (08:21)
[2021-07-15] MEDS: NYSTATIN POWDER 15GM TOP SCH ×3 (08:21→18:11)
[2021-07-15] MEDS ORDERED: POTASSIUM CHLORIDE 20MEQ/PACKET PO SCH (09:30)
[2021-07-15] MEDS ORDERED: MAGNESIUM 4 G PREMIX 100 ML IV SCH (11:00)
[2021-07-16] VITALS (47 sets, daily range): BP systolic 85–125; BP diastolic 33–82
[2021-07-16] MEDS: LACTULOSE 20G/30ML UDC PO SCH ×3 (05:06→21:11)
[2021-07-16 06:06] LABS: BASOPHILS % 0.3 % (0.0-2.0); HEMATOCRIT. 27.4 % (36.0-48.0); HEMOGLOBIN. 8.7 g/dL (12.0-16.0); LYMPHOCYTES % 13.9 % (20.0-50.0); MEAN CORPUSCULAR HEMOGLOBIN 32.1 pg (28.0-32.0); MEAN CORPUSCULAR VOLUME 100.9 fL (81.0-99.0); MONOCYTES % 10.5 % (2.0-8.0); NEUTROPHILS % 72.3 % (40.0-76.0); RED BLOOD CELL COUNT 2.72 mill/uL (4.2-5.4); RED CELL DISTRIBUTION WIDTH 22.7 % (11.6-14.6)
[2021-07-16 06:10] LABS: CHLORIDE 113 mEq/L (98-107)
[2021-07-16 06:29] LABS: PHOSPHORUS 2.9 mg/dL (2.5-4.9)
[2021-07-16 08:45] LABS: MEAN PLATELET VOLUME 7.6 fl (7.4-10.4); PLATELET 125 x1000/uL (130-400)
[2021-07-16] MEDS ORDERED: MAGNESIUM 4 G PREMIX 100 ML IV SCH (09:00)
[2021-07-16] MEDS: DEXT 5%/0.45% NACL 1000ML 1,000 ML IV SCH (09:00)
[2021-07-16] MEDS: METOPROLOL TARTRATE 25MG TABLET PO SCH ×2 (09:00→21:11)
[2021-07-16] MEDS: LEVETIRACETAM 500MG PREMIX 100 ML IV SCH ×2 (09:02→21:11)
[2021-07-16] MEDS: MULTIVITAMINS,THER W-MINERALS TABLET PO SCH (09:08)
[2021-07-16] MEDS: FOLIC ACID 1MG TABLET PO SCH (09:08)
[2021-07-16] MEDS: THIAMINE HCL 100MG TABLET PO SCH (09:08)
[2021-07-16] MEDS: MIDODRINE HCL 5MG TABLET PO SCH ×3 (09:09→16:26)
[2021-07-16] MEDS: RIFAXIMIN 550 MG TABLET PO SCH ×2 (09:10→21:11)
[2021-07-16] MEDS: NYSTATIN POWDER 15GM TOP SCH ×3 (09:10→16:26)
[2021-07-17] VITALS (15 sets, daily range): BP systolic 77–123; BP diastolic 44–80
[2021-07-17] MEDS: DEXT 5%/0.45% NACL 1000ML 1,000 ML IV SCH ×2 (04:54→12:23)
[2021-07-17] MEDS: LACTULOSE 20G/30ML UDC PO SCH ×3 (05:04→20:56)
[2021-07-17 06:37] LABS: INR 1.9
[2021-07-17 06:42] LABS: CHLORIDE 112 mEq/L (98-107)
[2021-07-17 06:47] LABS: PHOSPHORUS 3.1 mg/dL (2.5-4.9)
[2021-07-17 06:50] LABS: BASOPHILS % 0.3 % (0.0-2.0); EOSINOPHILS % 3.2 % (0.0-5.0); HEMATOCRIT. 26.9 % (36.0-48.0); HEMOGLOBIN. 8.8 g/dL (12.0-16.0); LYMPHOCYTES % 12.7 % (20.0-50.0); MEAN CORPUSCULAR HEMOGLOBIN 32.5 pg (28.0-32.0); MONOCYTES % 7.1 % (2.0-8.0); NEUTROPHILS % 76.7 % (40.0-76.0); RED BLOOD CELL COUNT 2.72 mill/uL (4.2-5.4); RED CELL DISTRIBUTION WIDTH 22.7 % (11.6-14.6)
[2021-07-17] MEDS: METOPROLOL TARTRATE 25MG TABLET PO SCH (08:46)
[2021-07-17 08:56] LABS: MEAN PLATELET VOLUME 7.8 fl (7.4-10.4); PLATELET 144 x1000/uL (130-400)
[2021-07-17] MEDS: NYSTATIN POWDER 15GM TOP SCH ×3 (09:00→17:00)
[2021-07-17] MEDS: MIDODRINE HCL 5MG TABLET PO SCH ×3 (09:00→17:00)
[2021-07-17] MEDS: THIAMINE HCL 100MG TABLET PO SCH (12:20)
[2021-07-17] MEDS: RIFAXIMIN 550 MG TABLET PO SCH ×2 (12:20→20:56)
[2021-07-17] MEDS: FOLIC ACID 1MG TABLET PO SCH (12:21)
[2021-07-17] MEDS: MULTIVITAMINS,THER W-MINERALS TABLET PO SCH (12:27)
[2021-07-17] MEDS: LEVETIRACETAM 500MG PREMIX 100 ML IV SCH ×2 (14:48→20:56)
[2021-07-17] MEDS: DOCUSATE SODIUM 100MG CAPSULE PO PRN (17:00)
[2021-07-17] MEDS: PHYTONADIONE 10MG/ML AMP SUBCUT SCH (17:00)
[2021-07-18] VITALS (102 sets, daily range): BP systolic 73–155; BP diastolic 41–86
[2021-07-18] MEDS ORDERED: PHENYLEPHRINE 100 MG in DEXT 5% WATER 240 ML IV PRN
[2021-07-18] MEDS ORDERED: LORAZEPAM 2MG/ML CPJ IM PRN
[2021-07-18] MEDS ORDERED: ALBUMIN HUMAN 12.5G/250ML (5%) IV ONE
[2021-07-18] MEDS ORDERED: HALOPERIDOL LACTATE 5MG/ML VIAL IM PRN
[2021-07-18] MEDS ORDERED: ALBUMIN HUMAN 12.5G/250ML (5%) IV NR (00:30)
[2021-07-18] MEDS ORDERED: DOPAMINE 800MG PREMIX (DOUBLE) 250 ML IV PRN (04:00)
[2021-07-18] MEDS: DEXT 5%/0.45% NACL 1000ML 1,000 ML IV SCH ×2 (04:01→20:32)
[2021-07-18] MEDS: NOREPINEPHRINE 8 MG in DEXT 5% WATER 242 ML IV PRN ×2 (04:01→12:22)
[2021-07-18 04:32] LABS: BG BASE EXCESS -6.4 mmol/L (-2.0-2.0); BG CARBOXYHEMOGLOBIN 0.5 % (0.5-1.5); BG DEOXYHEMOGLOBIN 11.2 % (0.0-5.0); BG FRACTION INSPIRED OXYGEN 32; BG HCO3 ACT 17.9 mmol/L (22.0-26.0); BG METHEMOGLOBIN 0.3 % (0.0-1.5); BG OXYGEN SATURATION 88.7 % (92.0-98.5); BG PCO2 31.4 mmHg (35.0-45.0); BG PH 7.374 (7.350-7.450); BG PO2 59.8 mmHg (75.0-100.0); BG SAMPLE SITE RIGHT RADIAL; BG TOTAL HEMOGLOBIN 10.3 g/dL (12.0-18.0); BG VENT MODE NASAL CANNULA
[2021-07-18] MEDS: LACTULOSE 20G/30ML UDC PO SCH ×3 (05:12→21:43)
[2021-07-18 06:30] LABS: HEMATOCRIT. 31.7 % (36.0-48.0); MEAN CORPUSCULAR HEMOGLOBIN 31.4 pg (28.0-32.0); MEAN CORPUSCULAR VOLUME 99.9 fL (81.0-99.0); MEAN PLATELET VOLUME 8.2 fl (7.4-10.4); PLATELET 208 x1000/uL (130-400); RED BLOOD CELL COUNT 3.17 mill/uL (4.2-5.4); RED CELL DISTRIBUTION WIDTH 22.6 % (11.6-14.6)
[2021-07-18 06:45] LABS: PHOSPHORUS 3.2 mg/dL (2.5-4.9)
[2021-07-18] MEDS ORDERED: MAGNESIUM 2 G PREMIX 50 ML IV NR (09:00)
[2021-07-18] MEDS: PHYTONADIONE 10MG/ML AMP SUBCUT SCH (09:03)
[2021-07-18] MEDS: MULTIVITAMINS,THER W-MINERALS TABLET PO SCH (09:03)
[2021-07-18] MEDS: LEVETIRACETAM 500MG PREMIX 100 ML IV SCH ×2 (09:03→20:33)
[2021-07-18] MEDS: MIDODRINE HCL 5MG TABLET PO SCH ×3 (09:04→16:47)
[2021-07-18] MEDS: RIFAXIMIN 550 MG TABLET PO SCH ×2 (09:04→20:32)
[2021-07-18] MEDS: FOLIC ACID 1MG TABLET PO SCH (09:05)
[2021-07-18] MEDS: THIAMINE HCL 100MG TABLET PO SCH (09:05)
[2021-07-18] MEDS: DOCUSATE SODIUM 100MG CAPSULE PO PRN (09:07)
[2021-07-18] MEDS: NYSTATIN POWDER 15GM TOP SCH ×3 (09:27→16:47)
[2021-07-18 12:22] LABS: PLATELET ESTIMATE NORMAL
[2021-07-18 12:38] LABS: PROTHROMBIN TIME 20.2 sec (9.6-11.0)
[2021-07-18 14:34] LABS: BG BASE EXCESS -3.4 mmol/L (-2.0-2.0); BG CARBOXYHEMOGLOBIN 0.3 % (0.5-1.5); BG DEOXYHEMOGLOBIN 2.8 % (0.0-5.0); BG FRACTION INSPIRED OXYGEN 99.8; BG HCO3 ACT 21.4 mmol/L (22.0-26.0); BG METHEMOGLOBIN 0.5 % (0.0-1.5); BG OXYGEN SATURATION 97.2 % (92.0-98.5); BG OXYHEMOGLOBIN 96.4 % (94.0-97.0); BG PCO2 37.1 mmHg (35.0-45.0); BG PH 7.378 (7.350-7.450); BG PO2 102.9 mmHg (75.0-100.0); BG SAMPLE SITE RIGHT RADIAL; BG TOTAL HEMOGLOBIN 9.5 g/dL (12.0-18.0); BG VENT MODE MASK - NRB
[2021-07-18] MEDS: PIPERACILLIN/TAZOBACTAM 3.375 G in DEXTROSE 5% WATER 50 ML IV SCH ×2 (15:35→22:37)
[2021-07-18 15:53] LABS: CLARITY URINE CLEAR (CLEAR); COLOR URINE DARK YELLOW (YELLOW); KETONES URINE NEGATIVE (NEGATIVE); LEUKOCYTE ESTERASE URINE NEGATIVE (NEGATIVE); NITRITE URINE NEGATIVE (NEGATIVE); OCCULT BLOOD URINE 1+ (NEGATIVE); PROTEIN URINE NEGATIVE (NEGATIVE); UROBILINOGEN URINE 0.2 E.U./dL (0.2-1.0)
[2021-07-18] MEDS ORDERED: VANCOMYCIN 2,000 MG in DEXT 5% WATER 500 ML IV NR (16:00)
[2021-07-19] VITALS (95 sets, daily range): BP systolic 85–138; BP diastolic 48–85
[2021-07-19] MEDS: NOREPINEPHRINE 8 MG in DEXT 5% WATER 242 ML IV PRN (01:27)
[2021-07-19 05:45] LABS: BASOPHILS % 0.2 % (0.0-2.0); EOSINOPHILS % 2.6 % (0.0-5.0); HEMATOCRIT. 23.6 % (36.0-48.0); HEMOGLOBIN. 7.5 g/dL (12.0-16.0); LYMPHOCYTES % 8.9 % (20.0-50.0); MEAN CORPUSCULAR HEMOGLOBIN 31.1 pg (28.0-32.0); MEAN CORPUSCULAR VOLUME 97.3 fL (81.0-99.0); MEAN PLATELET VOLUME 7.8 fl (7.4-10.4); MONOCYTES % 9.2 % (2.0-8.0); NEUTROPHILS % 79.1 % (40.0-76.0); PLATELET 112 x1000/uL (130-400); RED BLOOD CELL COUNT 2.42 mill/uL (4.2-5.4); RED CELL DISTRIBUTION WIDTH 22.2 % (11.6-14.6)
[2021-07-19 05:58] LABS: CHLORIDE 109 mEq/L (98-107)
[2021-07-19 06:07] LABS: PHOSPHORUS 2.9 mg/dL (2.5-4.9)
[2021-07-19] MEDS: LACTULOSE 20G/30ML UDC PO SCH ×3 (06:12→21:46)
[2021-07-19] MEDS: PIPERACILLIN/TAZOBACTAM 3.375 G in DEXTROSE 5% WATER 50 ML IV SCH ×3 (06:33→22:42)
[2021-07-19 07:46] LABS: INR 1.6; PROTHROMBIN TIME 16.3 sec (9.6-11.0)
[2021-07-19] MEDS: RIFAXIMIN 550 MG TABLET PO SCH ×2 (10:40→20:43)
[2021-07-19] MEDS: MULTIVITAMINS,THER W-MINERALS TABLET PO SCH (10:40)
[2021-07-19] MEDS: THIAMINE HCL 100MG TABLET PO SCH (10:41)
[2021-07-19] MEDS: FOLIC ACID 1MG TABLET PO SCH (10:41)
[2021-07-19] MEDS: LEVETIRACETAM 500MG PREMIX 100 ML IV SCH ×2 (10:41→20:45)
[2021-07-19] MEDS: MIDODRINE HCL 5MG TABLET PO SCH ×3 (10:41→16:44)
[2021-07-19] MEDS: NYSTATIN POWDER 15GM TOP SCH ×3 (10:41→16:43)
[2021-07-19] MEDS: PHYTONADIONE 10MG/ML AMP SUBCUT SCH (11:37)
[2021-07-19] MEDS ORDERED: MAGNESIUM 2 G PREMIX 50 ML IV SCH (12:00)
[2021-07-19] MEDS: VANCOMYCIN 1 G PREMIX 200 ML IV SCH (13:00)
[2021-07-19] MEDS ORDERED: VANCOMYCIN 1250MG in DEXTROSE 5% WATER 250ML IV SCH (16:00)
[2021-07-19] MEDS ORDERED: LORAZEPAM 1MG TABLET PO SCH (19:45)
[2021-07-20] VITALS (91 sets, daily range): BP systolic 71–127; BP diastolic 40–86
[2021-07-20] MEDS: NOREPINEPHRINE 8 MG in DEXT 5% WATER 242 ML IV PRN (01:22)
[2021-07-20 05:32] LABS: BASOPHILS % 0.3 % (0.0-2.0); EOSINOPHILS % 4.4 % (0.0-5.0); HEMATOCRIT. 25.9 % (36.0-48.0); HEMOGLOBIN. 8.3 g/dL (12.0-16.0); MEAN CORPUSCULAR HEMOGLOBIN 31.2 pg (28.0-32.0); MEAN CORPUSCULAR VOLUME 96.6 fL (81.0-99.0); MEAN PLATELET VOLUME 7.5 fl (7.4-10.4); MONOCYTES % 7.1 % (2.0-8.0); NEUTROPHILS % 76.2 % (40.0-76.0); PLATELET 90 x1000/uL (130-400); RED BLOOD CELL COUNT 2.68 mill/uL (4.2-5.4); RED CELL DISTRIBUTION WIDTH 21.3 % (11.6-14.6)
[2021-07-20 05:38] LABS: CHLORIDE 109 mEq/L (98-107)
[2021-07-20 05:46] LABS: PHOSPHORUS 4.1 mg/dL (2.5-4.9)
[2021-07-20] MEDS: LACTULOSE 20G/30ML UDC PO SCH ×3 (06:11→22:32)
[2021-07-20] MEDS: PIPERACILLIN/TAZOBACTAM 3.375 G in DEXTROSE 5% WATER 50 ML IV SCH ×3 (06:11→22:32)
[2021-07-20] MEDS: FOLIC ACID 1MG TABLET PO SCH (08:20)
[2021-07-20] MEDS: VANCOMYCIN 1 G PREMIX 200 ML IV SCH (08:20)
[2021-07-20] MEDS: THIAMINE HCL 100MG TABLET PO SCH (08:20)
[2021-07-20] MEDS: MULTIVITAMINS,THER W-MINERALS TABLET PO SCH (08:20)
[2021-07-20] MEDS: NYSTATIN POWDER 15GM TOP SCH ×3 (08:20→16:47)
[2021-07-20] MEDS: MIDODRINE HCL 5MG TABLET PO SCH ×3 (08:20→16:47)
[2021-07-20] MEDS ORDERED: LIDOCAINE HCL 1% 10 MG/ML 10ML VIAL ONE (08:31)
[2021-07-20] MEDS ORDERED: SODIUM BICARBONATE 4% (2.4MEQ) 5ML VIAL IV ONE (08:31)
[2021-07-20] MEDS: LEVETIRACETAM 500MG PREMIX 100 ML IV SCH ×2 (11:03→21:16)
[2021-07-20] MEDS ORDERED: MAGNESIUM 2 G PREMIX 50 ML IV NR (16:30)
[2021-07-21] VITALS (62 sets, daily range): BP systolic 92–129; BP diastolic 49–82
[2021-07-21] MEDS: VANCOMYCIN 1 G PREMIX 200 ML IV SCH ×2 (02:51→14:43)
[2021-07-21 05:43] LABS: BASOPHILS % 0.3 % (0.0-2.0); HEMATOCRIT. 24.4 % (36.0-48.0); LYMPHOCYTES % 13.2 % (20.0-50.0); MEAN CORPUSCULAR HEMOGLOBIN 31.9 pg (28.0-32.0); MEAN CORPUSCULAR VOLUME 97.6 fL (81.0-99.0); MEAN PLATELET VOLUME 8.3 fl (7.4-10.4); MONOCYTES % 7.8 % (2.0-8.0); NEUTROPHILS % 74.7 % (40.0-76.0); PLATELET 97 x1000/uL (130-400); RED CELL DISTRIBUTION WIDTH 21.8 % (11.6-14.6)
[2021-07-21 05:49] LABS: CHLORIDE 107 mEq/L (98-107)
[2021-07-21 06:02] LABS: PHOSPHORUS 3.6 mg/dL (2.5-4.9)
[2021-07-21] MEDS: PIPERACILLIN/TAZOBACTAM 3.375 G in DEXTROSE 5% WATER 50 ML IV SCH (06:25)
[2021-07-21] MEDS: LACTULOSE 20G/30ML UDC PO SCH ×3 (06:25→22:48)
[2021-07-21] MEDS: MULTIVITAMINS,THER W-MINERALS TABLET PO SCH (08:02)
[2021-07-21] MEDS: THIAMINE HCL 100MG TABLET PO SCH (08:02)
[2021-07-21] MEDS: MIDODRINE HCL 5MG TABLET PO SCH ×3 (08:03→18:02)
[2021-07-21] MEDS: FOLIC ACID 1MG TABLET PO SCH (08:03)
[2021-07-21] MEDS: NYSTATIN POWDER 15GM TOP SCH ×3 (08:04→17:00)
[2021-07-21] MEDS ORDERED: MAGNESIUM OXIDE 400MG TABLET PO SCH (09:00)
[2021-07-21] MEDS: LEVETIRACETAM 500MG PREMIX 100 ML IV SCH ×2 (09:28→22:48)
[2021-07-21] MEDS ORDERED: MAGNESIUM 2 G PREMIX 50 ML IV NR (11:00)
[2021-07-21] MEDS: MAGNESIUM OXIDE 400MG TABLET PO SCH (17:59)
[2021-07-21] MEDS: ACETAMINOPHEN 325MG TABLET PO PRN (22:58)
[2021-07-22] VITALS (12 sets, daily range): BP systolic 99–124; BP diastolic 55–81
[2021-07-22] MEDS: VANCOMYCIN 1 G PREMIX 200 ML IV SCH (04:42)
[2021-07-22] MEDS: LACTULOSE 20G/30ML UDC PO SCH ×3 (04:51→20:50)
[2021-07-22 05:41] LABS: CHLORIDE 104 mEq/L (98-107)
[2021-07-22 05:46] LABS: PHOSPHORUS 3.7 mg/dL (2.5-4.9)
[2021-07-22 06:17] LABS: BASOPHILS % 0.3 % (0.0-2.0); HEMATOCRIT. 28.1 % (36.0-48.0); LYMPHOCYTES % 11.4 % (20.0-50.0); MEAN CORPUSCULAR HEMOGLOBIN 31.4 pg (28.0-32.0); MEAN CORPUSCULAR VOLUME 98.6 fL (81.0-99.0); MEAN PLATELET VOLUME 8.3 fl (7.4-10.4); MONOCYTES % 7.1 % (2.0-8.0); NEUTROPHILS % 78.2 % (40.0-76.0); PLATELET 119 x1000/uL (130-400); RED BLOOD CELL COUNT 2.85 mill/uL (4.2-5.4); RED CELL DISTRIBUTION WIDTH 21.3 % (11.6-14.6)
[2021-07-22] MEDS: ACETAMINOPHEN 325MG TABLET PO PRN (06:54)
[2021-07-22] MEDS: MULTIVITAMINS,THER W-MINERALS TABLET PO SCH (08:50)
[2021-07-22] MEDS: THIAMINE HCL 100MG TABLET PO SCH (08:50)
[2021-07-22] MEDS: LEVETIRACETAM 500MG TABLET PO SCH ×2 (08:50→20:50)
[2021-07-22] MEDS: FOLIC ACID 1MG TABLET PO SCH (08:50)
[2021-07-22] MEDS: MAGNESIUM OXIDE 400MG TABLET PO SCH ×2 (08:50→17:26)
[2021-07-22] MEDS: NYSTATIN POWDER 15GM TOP SCH ×3 (08:51→17:33)
[2021-07-22] MEDS: MIDODRINE HCL 5MG TABLET PO SCH ×3 (08:51→17:27)
[2021-07-22 10:01] LABS: INR 1.7; PROTHROMBIN TIME 17.4 sec (9.6-11.0)
[2021-07-22] MEDS ORDERED: LIDOCAINE HCL 1% 20ML VIAL (Pyxis) INJ ONE (13:19)
[2021-07-22] MEDS ORDERED: SODIUM BICARBONATE 4% (2.4MEQ) 5ML VIAL IV ONE (13:19)
[2021-07-22] MEDS: VANCOMYCIN 750 MG PREMIX 150 ML IV SCH (17:28)
[2021-07-22] MEDS: ONDANSETRON HCL 4MG/2ML INJ IV PRN (17:33)
[2021-07-23] VITALS (9 sets, daily range): BP systolic 95–105; BP diastolic 47–66
[2021-07-23] MEDS: VANCOMYCIN 750 MG PREMIX 150 ML IV SCH ×2 (05:10→17:33)
[2021-07-23] MEDS: LACTULOSE 20G/30ML UDC PO SCH ×3 (05:11→20:31)
[2021-07-23 06:22] LABS: HEMATOCRIT. 31.6 % (36.0-48.0); HEMOGLOBIN. 10.3 g/dL (12.0-16.0); MEAN CORPUSCULAR HEMOGLOBIN 32.1 pg (28.0-32.0); MEAN CORPUSCULAR VOLUME 98.8 fL (81.0-99.0); RED CELL DISTRIBUTION WIDTH 20.6 % (11.6-14.6)
[2021-07-23 06:36] LABS: INR 1.6; PROTHROMBIN TIME 16.7 sec (9.6-11.0)
[2021-07-23 07:14] LABS: PHOSPHORUS 4.2 mg/dL (2.5-4.9)
[2021-07-23] MEDS: THIAMINE HCL 100MG TABLET PO SCH (09:45)
[2021-07-23] MEDS: LEVETIRACETAM 500MG TABLET PO SCH ×2 (09:45→20:31)
[2021-07-23] MEDS: MULTIVITAMINS,THER W-MINERALS TABLET PO SCH (09:45)
[2021-07-23] MEDS: MAGNESIUM OXIDE 400MG TABLET PO SCH ×2 (09:45→17:33)
[2021-07-23] MEDS: FOLIC ACID 1MG TABLET PO SCH (09:45)
[2021-07-23] MEDS: MIDODRINE HCL 5MG TABLET PO SCH ×3 (09:47→17:34)
[2021-07-23] MEDS: NYSTATIN POWDER 15GM TOP SCH ×3 (09:47→17:44)
[2021-07-23 09:51] LABS: PLATELET 122 x1000/uL (130-400)
[2021-07-23 09:57] LABS: PLATELET ESTIMATE NORMAL
[2021-07-23] MEDS: METOCLOPRAMIDE HCL 5MG TABLET PO SCH (22:54)
[2021-07-24] VITALS (11 sets, daily range): BP systolic 88–105; BP diastolic 53–76
[2021-07-24] MEDS: METOCLOPRAMIDE HCL 5MG TABLET PO SCH ×4 (05:16→23:31)
[2021-07-24] MEDS: LACTULOSE 20G/30ML UDC PO SCH ×3 (05:16→21:13)
[2021-07-24 06:41] LABS: BASOPHILS % 0.5 % (0.0-2.0); EOSINOPHILS % 3.3 % (0.0-5.0); HEMOGLOBIN. 9.3 g/dL (12.0-16.0); LYMPHOCYTES % 9.5 % (20.0-50.0); MEAN CORPUSCULAR HEMOGLOBIN 32.6 pg (28.0-32.0); MEAN CORPUSCULAR VOLUME 97.8 fL (81.0-99.0); MEAN PLATELET VOLUME 8.6 fl (7.4-10.4); MONOCYTES % 8.1 % (2.0-8.0); NEUTROPHILS % 78.6 % (40.0-76.0); PLATELET 147 x1000/uL (130-400); RED BLOOD CELL COUNT 2.86 mill/uL (4.2-5.4); RED CELL DISTRIBUTION WIDTH 20.1 % (11.6-14.6)
[2021-07-24 06:44] LABS: INR 1.5; PROTHROMBIN TIME 15.8 sec (9.6-11.0)
[2021-07-24] MEDS: MULTIVITAMINS,THER W-MINERALS TABLET PO SCH (07:54)
[2021-07-24] MEDS: MAGNESIUM OXIDE 400MG TABLET PO SCH ×2 (07:55→17:53)
[2021-07-24] MEDS: THIAMINE HCL 100MG TABLET PO SCH (07:55)
[2021-07-24] MEDS: MIDODRINE HCL 5MG TABLET PO SCH ×3 (07:55→17:36)
[2021-07-24] MEDS: FOLIC ACID 1MG TABLET PO SCH (07:55)
[2021-07-24] MEDS: LEVETIRACETAM 500MG TABLET PO SCH ×2 (07:55→21:13)
[2021-07-24] MEDS: NYSTATIN POWDER 15GM TOP SCH ×3 (09:20→17:54)
[2021-07-24] MEDS ORDERED: PHYTONADIONE 10MG/ML AMP SUBCUT NR (16:45)
[2021-07-24] MEDS: MEROPENEM 1,000 MG in SODIUM CHLORIDE 0.9% 100 ML IV SCH (20:06)
[2021-07-24] MEDS: ALBUMIN HUMAN 25GM/100ML (25%) IV SCH (23:29)
[2021-07-25] VITALS (8 sets, daily range): BP systolic 95–105; BP diastolic 55–64
[2021-07-25] MEDS: MEROPENEM 1,000 MG in SODIUM CHLORIDE 0.9% 100 ML IV SCH ×3 (03:22→18:07)
[2021-07-25] MEDS: ALBUMIN HUMAN 25GM/100ML (25%) IV SCH ×2 (05:05→13:16)
[2021-07-25] MEDS: METOCLOPRAMIDE HCL 5MG TABLET PO SCH ×3 (06:13→18:07)
[2021-07-25] MEDS: LACTULOSE 20G/30ML UDC PO SCH ×3 (06:13→21:33)
[2021-07-25 06:17] LABS: BASOPHILS % 0.5 % (0.0-2.0); EOSINOPHILS % 3.6 % (0.0-5.0); HEMATOCRIT. 29.7 % (36.0-48.0); HEMOGLOBIN. 9.5 g/dL (12.0-16.0); LYMPHOCYTES % 9.4 % (20.0-50.0); MEAN CORPUSCULAR HEMOGLOBIN 31.3 pg (28.0-32.0); MEAN CORPUSCULAR VOLUME 97.7 fL (81.0-99.0); MEAN PLATELET VOLUME 8.4 fl (7.4-10.4); MONOCYTES % 7.7 % (2.0-8.0); NEUTROPHILS % 78.8 % (40.0-76.0); PLATELET 135 x1000/uL (130-400); RED BLOOD CELL COUNT 3.04 mill/uL (4.2-5.4); RED CELL DISTRIBUTION WIDTH 19.6 % (11.6-14.6)
[2021-07-25] MEDS: MIDODRINE HCL 5MG TABLET PO SCH ×3 (09:20→18:07)
[2021-07-25] MEDS: THIAMINE HCL 100MG TABLET PO SCH (09:21)
[2021-07-25] MEDS: MULTIVITAMINS,THER W-MINERALS TABLET PO SCH (09:21)
[2021-07-25] MEDS: LEVETIRACETAM 500MG TABLET PO SCH ×2 (09:21→20:26)
[2021-07-25] MEDS: FOLIC ACID 1MG TABLET PO SCH (09:21)
[2021-07-25] MEDS: MAGNESIUM OXIDE 400MG TABLET PO SCH ×2 (09:21→18:06)
[2021-07-25] MEDS: NYSTATIN POWDER 15GM TOP SCH ×3 (09:22→17:00)
[2021-07-25] MEDS ORDERED: LIDOCAINE HCL 1% 20ML VIAL (Pyxis) INJ ONE (10:18)
[2021-07-25] MEDS ORDERED: SODIUM BICARBONATE 4% (2.4MEQ) 5ML VIAL IV ONE (10:19)
[2021-07-25] MEDS ORDERED: SORBITOL 70% SOLN 30ML PO NR (13:45)
[2021-07-26] VITALS (7 sets, daily range): BP systolic 95–112; BP diastolic 51–79
[2021-07-26] MEDS: METOCLOPRAMIDE HCL 5MG TABLET PO SCH ×5 (00:58→23:42)
[2021-07-26] MEDS: MEROPENEM 1,000 MG in SODIUM CHLORIDE 0.9% 100 ML IV SCH ×3 (02:01→17:30)
[2021-07-26] MEDS: ONDANSETRON HCL 4MG/2ML INJ IV PRN (02:05)
[2021-07-26] MEDS: LACTULOSE 20G/30ML UDC PO SCH ×3 (05:11→21:09)
[2021-07-26 06:44] LABS: BASOPHILS % 0.6 % (0.0-2.0); EOSINOPHILS % 4.3 % (0.0-5.0); HEMATOCRIT. 27.2 % (36.0-48.0); HEMOGLOBIN. 8.9 g/dL (12.0-16.0); LYMPHOCYTES % 9.7 % (20.0-50.0); MEAN CORPUSCULAR HEMOGLOBIN 32.1 pg (28.0-32.0); MEAN CORPUSCULAR VOLUME 97.9 fL (81.0-99.0); MEAN PLATELET VOLUME 8.4 fl (7.4-10.4); MONOCYTES % 5.9 % (2.0-8.0); NEUTROPHILS % 79.5 % (40.0-76.0); PLATELET 123 x1000/uL (130-400); RED BLOOD CELL COUNT 2.77 mill/uL (4.2-5.4); RED CELL DISTRIBUTION WIDTH 19.8 % (11.6-14.6)
[2021-07-26] MEDS: FOLIC ACID 1MG TABLET PO SCH (09:51)
[2021-07-26] MEDS: LEVETIRACETAM 500MG TABLET PO SCH ×2 (09:51→21:00)
[2021-07-26] MEDS: MAGNESIUM OXIDE 400MG TABLET PO SCH ×2 (09:51→17:25)
[2021-07-26] MEDS: THIAMINE HCL 100MG TABLET PO SCH (09:51)
[2021-07-26] MEDS: MIDODRINE HCL 5MG TABLET PO SCH ×3 (09:52→17:25)
[2021-07-26] MEDS: MULTIVITAMINS,THER W-MINERALS TABLET PO SCH (09:53)
[2021-07-26] MEDS: NYSTATIN POWDER 15GM TOP SCH ×3 (10:19→18:26)
[2021-07-27] VITALS (7 sets, daily range): BP systolic 95–117; BP diastolic 55–73
[2021-07-27] MEDS: MEROPENEM 1,000 MG in SODIUM CHLORIDE 0.9% 100 ML IV SCH ×3 (03:08→18:53)
[2021-07-27] MEDS: LACTULOSE 20G/30ML UDC PO SCH ×3 (05:49→21:40)
[2021-07-27] MEDS: METOCLOPRAMIDE HCL 5MG TABLET PO SCH ×3 (05:49→17:31)
[2021-07-27 06:38] LABS: BASOPHILS % 0.4 % (0.0-2.0); EOSINOPHILS % 5.2 % (0.0-5.0); HEMATOCRIT. 26.1 % (36.0-48.0); HEMOGLOBIN. 8.6 g/dL (12.0-16.0); LYMPHOCYTES % 11.5 % (20.0-50.0); MEAN CORPUSCULAR HEMOGLOBIN 31.9 pg (28.0-32.0); MEAN CORPUSCULAR VOLUME 97.2 fL (81.0-99.0); MEAN PLATELET VOLUME 8.1 fl (7.4-10.4); NEUTROPHILS % 76.9 % (40.0-76.0); PLATELET 135 x1000/uL (130-400); RED BLOOD CELL COUNT 2.68 mill/uL (4.2-5.4); RED CELL DISTRIBUTION WIDTH 19.4 % (11.6-14.6)
[2021-07-27] MEDS: THIAMINE HCL 100MG TABLET PO SCH (08:41)
[2021-07-27] MEDS: LEVETIRACETAM 500MG TABLET PO SCH ×2 (08:41→21:40)
[2021-07-27] MEDS: FOLIC ACID 1MG TABLET PO SCH (08:41)
[2021-07-27] MEDS: MULTIVITAMINS,THER W-MINERALS TABLET PO SCH (08:41)
[2021-07-27] MEDS: MIDODRINE HCL 5MG TABLET PO SCH ×3 (08:41→17:32)
[2021-07-27] MEDS: MAGNESIUM OXIDE 400MG TABLET PO SCH ×2 (08:41→17:31)
[2021-07-27] MEDS: NYSTATIN POWDER 15GM TOP SCH ×3 (08:42→17:31)
[2021-07-28] VITALS: BP 96/57
[2021-07-28] MEDS: METOCLOPRAMIDE HCL 5MG TABLET PO SCH ×5 (00:09→23:48)
[2021-07-28] MEDS: MEROPENEM 1,000 MG in SODIUM CHLORIDE 0.9% 100 ML IV SCH ×2 (02:02→09:35)
[2021-07-28 04:00] VITALS: BP 97/60
[2021-07-28] MEDS: LACTULOSE 20G/30ML UDC PO SCH ×3 (05:30→21:23)
[2021-07-28 06:46] LABS: BASOPHILS % 0.4 % (0.0-2.0); EOSINOPHILS % 4.5 % (0.0-5.0); HEMATOCRIT. 25.2 % (36.0-48.0); HEMOGLOBIN. 8.5 g/dL (12.0-16.0); LYMPHOCYTES % 9.9 % (20.0-50.0); MEAN CORPUSCULAR HEMOGLOBIN 32.9 pg (28.0-32.0); MEAN CORPUSCULAR VOLUME 97.2 fL (81.0-99.0); MONOCYTES % 6.3 % (2.0-8.0); NEUTROPHILS % 78.9 % (40.0-76.0); PLATELET 144 x1000/uL (130-400); RED BLOOD CELL COUNT 2.59 mill/uL (4.2-5.4); RED CELL DISTRIBUTION WIDTH 18.7 % (11.6-14.6)
[2021-07-28] MEDS: MIDODRINE HCL 5MG TABLET PO SCH ×3 (09:07→17:35)
[2021-07-28] MEDS: THIAMINE HCL 100MG TABLET PO SCH (09:08)
[2021-07-28] MEDS: NYSTATIN POWDER 15GM TOP SCH ×3 (09:08→17:35)
[2021-07-28] MEDS: FOLIC ACID 1MG TABLET PO SCH (09:08)
[2021-07-28] MEDS: MAGNESIUM OXIDE 400MG TABLET PO SCH ×2 (09:08→17:35)
[2021-07-28] MEDS: LEVETIRACETAM 500MG TABLET PO SCH ×2 (09:08→21:23)
[2021-07-28] MEDS: MULTIVITAMINS,THER W-MINERALS TABLET PO SCH (09:08)
[2021-07-28 15:45] VITALS: BP 102/57
[2021-07-28] MEDS ORDERED: FOLI-43 PO (16:18)
[2021-07-28] MEDS ORDERED: THIA100T72 PO (16:18)
[2021-07-28] MEDS ORDERED: METO5TAB2 PO (16:18)
[2021-07-28] MEDS ORDERED: LACT10SO7 PO (16:18)
[2021-07-28] MEDS ORDERED: MAGN200T5 MT (16:18)
[2021-07-28] MEDS ORDERED: MULT-230 MT (16:18)
[2021-07-28] MEDS ORDERED: MIDO5TAB4 PO (16:18)
[2021-07-28] MEDS ORDERED: KEPP500 PO (16:18)
[2021-07-28 20:00] VITALS: BP 110/63
[2021-07-29] VITALS: BP 102/65
[2021-07-29 05:52] LABS: INR 1.7; PROTHROMBIN TIME 17.5 sec (9.6-11.0)
[2021-07-29] MEDS: LACTULOSE 20G/30ML UDC PO SCH (06:00)
[2021-07-29] MEDS: METOCLOPRAMIDE HCL 5MG TABLET PO SCH ×2 (06:04→13:10)
[2021-07-29 06:16] LABS: BASOPHILS % 0.5 % (0.0-2.0); EOSINOPHILS % 4.8 % (0.0-5.0); HEMATOCRIT. 26.4 % (36.0-48.0); HEMOGLOBIN. 8.8 g/dL (12.0-16.0); LYMPHOCYTES % 9.9 % (20.0-50.0); MEAN CORPUSCULAR HEMOGLOBIN 32.9 pg (28.0-32.0); MEAN CORPUSCULAR VOLUME 98.3 fL (81.0-99.0); MONOCYTES % 5.8 % (2.0-8.0); RED BLOOD CELL COUNT 2.68 mill/uL (4.2-5.4); RED CELL DISTRIBUTION WIDTH 18.7 % (11.6-14.6)
[2021-07-29 08:00] VITALS: BP 110/62
[2021-07-29] MEDS: FOLIC ACID 1MG TABLET PO SCH (09:00)
[2021-07-29] MEDS: THIAMINE HCL 100MG TABLET PO SCH (09:02)
[2021-07-29] MEDS: MULTIVITAMINS,THER W-MINERALS TABLET PO SCH (09:02)
[2021-07-29] MEDS: ACETAMINOPHEN 325MG TABLET PO PRN (09:02)
[2021-07-29] MEDS: MAGNESIUM OXIDE 400MG TABLET PO SCH (09:02)
[2021-07-29] MEDS: LEVETIRACETAM 500MG TABLET PO SCH (09:03)
[2021-07-29] MEDS: MIDODRINE HCL 5MG TABLET PO SCH ×2 (09:03→13:10)
[2021-07-29 11:48] VITALS: BP 110/62
[2021-07-29 11:55] LABS: MEAN PLATELET VOLUME 8.3 fl (7.4-10.4); PLATELET 159 x1000/uL (130-400)
== END 2021-07-29 16:40 | disposition home health service (06) | DRG 48 ==
LOC: ER 09:48 → 3WST 13:29 → EDBEDREQ 13:31 → EDBEDREQTM 13:31 → ER 16:51 → MICUNO 07-02 18:20 → 3WST 07-03 22:50 → MICUSO 07-12 17:26 → 5EST 07-17 03:18 → CVICU 07-18 → 5EST 07-21 15:10
PROVIDERS: ADMIT Internal Medicine; ATTEND Internal Medicine
PROC: 0HQ1XZZ Repair Face Skin, External Approach (ICD-10-PCS; 2021-07-01)
PROC: 5A12012 Performance of Cardiac Output, Single, Manual (ICD-10-PCS; 2021-07-02)
PROC: 4A10X4Z Monitoring of Central Nervous Electrical Activity, External Approach (ICD-10-PCS; principal; 2021-07-03)
PROC: 30233R1 Transfusion of Nonautologous Platelets into Peripheral Vein, Percutaneous Approach (ICD-10-PCS; 2021-07-03)
PROC: 0W9G3ZZ Drainage of Peritoneal Cavity, Percutaneous Approach (ICD-10-PCS; 2021-07-04)
PROC: 30233K1 Transfusion of Nonautologous Frozen Plasma into Peripheral Vein, Percutaneous Approach (ICD-10-PCS; 2021-07-04)
PROC: 05HM33Z Insertion of Infusion Device into Right Internal Jugular Vein, Percutaneous Approach (ICD-10-PCS; 2021-07-13)
PROC: B543ZZA Ultrasonography of Right Jugular Veins, Guidance (ICD-10-PCS; 2021-07-13)
PROC: 0W9G3ZZ Drainage of Peritoneal Cavity, Percutaneous Approach (ICD-10-PCS; 2021-07-20)
PROC: 0W9G3ZZ Drainage of Peritoneal Cavity, Percutaneous Approach (ICD-10-PCS; 2021-07-22)
PROC: 0W9G3ZZ Drainage of Peritoneal Cavity, Percutaneous Approach (ICD-10-PCS; 2021-07-25)
DX: G90.8 Other disorders of autonomic nervous system (principal); J96.01 Acute respiratory failure with hypoxia; A41.81 Sepsis due to Enterococcus; I46.9 Cardiac arrest, cause unspecified; R65.21 Severe sepsis with septic shock; D61.818 Other pancytopenia; K85.90 Acute pancreatitis without necrosis or infection, unspecified; E43 Unspecified severe protein-calorie malnutrition; K70.31 Alcoholic cirrhosis of liver with ascites; K70.9 Alcoholic liver disease, unspecified; G92.8 Other toxic encephalopathy; N39.0 Urinary tract infection, site not specified; D68.9 Coagulation defect, unspecified; D50.9 Iron deficiency anemia, unspecified; E66.2 Morbid (severe) obesity with alveolar hypoventilation; E87.6 Hypokalemia; E83.42 Hypomagnesemia; D53.9 Nutritional anemia, unspecified; E87.4 Mixed disorder of acid-base balance; E87.5 Hyperkalemia; F10.229 Alcohol dependence with intoxication, unspecified; F17.210 Nicotine dependence, cigarettes, uncomplicated; I11.0 Hypertensive heart disease with heart failure; I50.32 Chronic diastolic (congestive) heart failure; N17.9 Acute kidney failure, unspecified; F32.A Depression, unspecified; K21.9 Gastro-esophageal reflux disease without esophagitis; R16.2 Hepatomegaly with splenomegaly, not elsewhere classified; W01.0XXA Fall on same level from slipping, tripping and stumbling without subsequent striking against object, initial encounter; E83.39 Other disorders of phosphorus metabolism; F10.239 Alcohol dependence with withdrawal, unspecified; Z20.822 Contact with and (suspected) exposure to COVID-19; K72.90 Hepatic failure, unspecified without coma; Y90.8 Blood alcohol level of 240 mg/100 ml or more; S01.81XA Laceration without foreign body of other part of head, initial encounter; Y93.89 Activity, other specified; Y92.89 Other specified places as the place of occurrence of the external cause; Y99.8 Other external cause status; Z78.1 Physical restraint status; Z79.899 Other long term (current) drug therapy; Z82.49 Family history of ischemic heart disease and other diseases of the circulatory system; Z83.3 Family history of diabetes mellitus; Z68.38 Body mass index [BMI] 38.0-38.9, adult; Z71.41 Alcohol abuse counseling and surveillance of alcoholic
CPT/HCPCS: 36415; 36600; 49083; 70551; 71045; 71275; 74018; 76700; 76705; 76937; 78580; 80048; 80053; 80076; 80202; 80320; 81003; 82040; 82140; 82150; 82248; 82270; 82375; 82550; 82553; 82607; 82728; 82746; 82805; 82962; 83540; 83550; 83605; 83735; 83880; 84100; 84132; 84145; 84443; 84484; 84703; 85025; 85027; 85044; 85379; 86705; 86709; 86803; 86850; 86900; 86927; 87077; 87186; 87340; 87426; 88108; 92610; 93005; 93306; 93880; 93970; 95816; 97116; 97162; 97164; 97166; 97168; 97530; 99285; A6261; C1725; C1893; J0692; J1630; J1953; J2060; J2185; J2370; J2405; J2543; J3370; J3411; J3430; J3475; J3480; J3490; J7040; J7042; J7050; J7060; J7070; J8597; P9017; P9047; Q9967; A4315; G0480; P9036

== ENCOUNTER 2021-08-06 18:31 | Emergency (ER) | payer OTHER ==
[~2021-08-06] VITALS: Ht 160 cm; Wt 107.0 kg
[~2021-08-06 18:31] MED LIST: FOLI-43 PO; KEPP500 PO; LACT10SO7 PO; MAGN200T5 MT; METO5TAB2 PO; MIDO5TAB4 PO; MULT-230 MT; THIA100T72 PO
[2021-08-06 19:04] VITALS: BP 102/49
== END 2021-08-06 21:38 | disposition home or self-care (01) ==
LOC: ER 18:31
DX: K70.31 Alcoholic cirrhosis of liver with ascites (principal); R60.1 Generalized edema; Z98.890 Other specified postprocedural states
CPT/HCPCS: 93005; 99283

== ENCOUNTER 2021-08-07 09:57 | Inpatient (IN) | payer OTHER ==
[~2021-08-07] VITALS: Ht 154.9 cm; Wt 100.8 kg
[2021-08-07] MEDS ORDERED: ACETAMINOPHEN 325MG TABLET PO ONE (10:30)
[2021-08-07 11:04] LABS: BASOPHILS % 0.3 % (0.0-2.0); EOSINOPHILS % 3.9 % (0.0-5.0); HEMATOCRIT. 30.8 % (36.0-48.0); HEMOGLOBIN. 10.1 g/dL (12.0-16.0); LYMPHOCYTES % 10.1 % (20.0-50.0); MEAN CORPUSCULAR HEMOGLOBIN 32.3 pg (28.0-32.0); MEAN CORPUSCULAR VOLUME 98.3 fL (81.0-99.0); MEAN PLATELET VOLUME 7.8 fl (7.4-10.4); MONOCYTES % 5.4 % (2.0-8.0); NEUTROPHILS % 80.3 % (40.0-76.0); PLATELET 181 x1000/uL (130-400); RED BLOOD CELL COUNT 3.13 mill/uL (4.2-5.4); RED CELL DISTRIBUTION WIDTH 16.1 % (11.6-14.6)
[2021-08-07 11:05] LABS: CHLORIDE 102 mEq/L (98-107)
[2021-08-07 11:11] LABS: INR 1.8; PROTHROMBIN TIME 18.1 sec (9.6-11.0)
[2021-08-07] MEDS ORDERED: SODIUM BICARBONATE 4% (2.4MEQ) 5ML VIAL IV ONE (14:53)
[2021-08-07] MEDS ORDERED: LIDOCAINE HCL 1% 20ML VIAL (Pyxis) INJ ONE (14:53)
[2021-08-07] MEDS ORDERED: MORPHINE SULFATE 2 MG/ML CPJ (NOT FOR IM USE) IV ONE (15:00)
[2021-08-07] MEDS ORDERED: ONDANSETRON HCL 4MG/2ML INJ IV ONE (15:00)
[2021-08-07] MEDS ORDERED: CLONIDINE 0.1MG TABLET PO PRN (16:15)
[2021-08-07] MEDS ORDERED: LORAZEPAM 0.5MG TABLET PO PRN (16:15)
[2021-08-07] MEDS ORDERED: ACETAMINOPHEN 325MG TABLET PO PRN ×2 (16:15)
[2021-08-07] MEDS ORDERED: IPRATROPIUM/ALBUTEROL 0.5-3(2.5)MG/3ML NEB HHN PRN (16:15)
[2021-08-07] MEDS ORDERED: DOCUSATE SODIUM 100MG CAPSULE PO PRN (16:15)
[2021-08-07] MEDS ORDERED: HYDROCODONE/ACETAMINOPHEN 5/325MG TABLET PO PRN (16:15)
[2021-08-07] MEDS ORDERED: ONDANSETRON HCL 4MG/2ML INJ IV PRN (16:15)
[2021-08-07] MEDS: METOCLOPRAMIDE HCL 5MG TABLET PO SCH ×2 (17:45→23:31)
[2021-08-07] MEDS: MIDODRINE HCL 5MG TABLET PO SCH (17:45)
[2021-08-07] MEDS: LEVETIRACETAM 500MG TABLET PO SCH (21:02)
[2021-08-07 21:40] VITALS: BP 100/66
[2021-08-07] MEDS: LACTULOSE 20G/30ML UDC PO SCH (22:00)
[2021-08-08] VITALS: BP 100/66
[2021-08-08 04:00] VITALS: BP 97/60
[2021-08-08] MEDS: LACTULOSE 20G/30ML UDC PO SCH (06:00)
[2021-08-08] MEDS: METOCLOPRAMIDE HCL 5MG TABLET PO SCH (06:00)
[2021-08-08 08:00] VITALS: BP 91/50
[2021-08-08] MEDS ORDERED: MULTIVITAMINS,THER W-MINERALS TABLET PO SCH (09:00)
[2021-08-08] MEDS: LEVETIRACETAM 500MG TABLET PO SCH (09:00)
[2021-08-08] MEDS ORDERED: THIAMINE HCL 100MG TABLET PO SCH (09:00)
[2021-08-08] MEDS ORDERED: FOLIC ACID 1MG TABLET PO SCH (09:00)
[2021-08-08] MEDS: MIDODRINE HCL 5MG TABLET PO SCH (09:00)
[2021-08-08 09:22] LABS: INR 1.8; PROTHROMBIN TIME 18.8 sec (9.6-11.0)
[2021-08-08] MEDS ORDERED: FURO20TA4 MT (11:32)
[2021-08-08 11:53] VITALS: BP 18/90
[2021-08-08 12:00] VITALS: BP 99/59
== END 2021-08-08 14:11 | disposition home or self-care (01) ==
LOC: ER 09:57 → 6EST 14:56 → EDBEDREQSVC 16:13 → ENRESERV 21:02 → 6EST 08-08
PROVIDERS: ADMIT Internal Medicine; ATTEND Internal Medicine
PROC: 0W9G3ZZ Drainage of Peritoneal Cavity, Percutaneous Approach (ICD-10-PCS; principal; 2021-08-07)
DX: K76.6 Portal hypertension (principal); R18.8 Other ascites; I50.32 Chronic diastolic (congestive) heart failure; R74.01 Elevation of levels of liver transaminase levels; F10.20 Alcohol dependence, uncomplicated; K70.30 Alcoholic cirrhosis of liver without ascites; Z20.822 Contact with and (suspected) exposure to COVID-19; E80.6 Other disorders of bilirubin metabolism; Z98.891 History of uterine scar from previous surgery; Z79.899 Other long term (current) drug therapy
CPT/HCPCS: 36415; 49083; 71045; 76705; 80053; 82140; 82150; 83615; 83880; 84484; 85025; 87426; 93005; 99285; J3490; J8597

== ENCOUNTER 2021-08-14 10:19 | Emergency (ER) | payer OTHER ==
[~2021-08-14] VITALS: Ht 160 cm; Wt 102.0 kg
[~2021-08-14 10:19] MED LIST changes: +FURO20TA4 MT
[2021-08-14 11:45] LABS: BASOPHILS % 0.7 % (0.0-2.0); HEMATOCRIT. 32.1 % (36.0-48.0); HEMOGLOBIN. 10.7 g/dL (12.0-16.0); LYMPHOCYTES % 17.4 % (20.0-50.0); MEAN CORPUSCULAR HEMOGLOBIN 32.3 pg (28.0-32.0); MEAN CORPUSCULAR VOLUME 97.1 fL (81.0-99.0); MEAN PLATELET VOLUME 8.1 fl (7.4-10.4); MONOCYTES % 6.4 % (2.0-8.0); NEUTROPHILS % 72.5 % (40.0-76.0); PLATELET 194 x1000/uL (130-400); RED CELL DISTRIBUTION WIDTH 15.9 % (11.6-14.6)
[2021-08-14 11:53] LABS: CHLORIDE 103 mEq/L (98-107)
[2021-08-14 11:55] LABS: INR 1.7; PROTHROMBIN TIME 17.3 sec (9.6-11.0)
[2021-08-14] MEDS ORDERED: ALBUMIN HUMAN 25GM/500ML (5%) IV ONE (18:45)
[2021-08-14 22:23] VITALS: BP 106/55
== END 2021-08-14 22:23 | disposition home or self-care (01) ==
LOC: ER 10:19
DX: K70.31 Alcoholic cirrhosis of liver with ascites (principal); Z98.890 Other specified postprocedural states
CPT/HCPCS: 36415; 80053; 83690; 85025; 85610; 87070; 87075; 87205; 89050; 96374; 99285; P9041; Z7610

== ENCOUNTER 2021-08-20 14:05 | Inpatient (IN) | payer OTHER ==
[~2021-08-20] VITALS: Ht 160 cm; Wt 102.1 kg
[2021-08-20 15:26] LABS: BASOPHILS % 0.3 % (0.0-2.0); EOSINOPHILS % 2.5 % (0.0-5.0); HEMATOCRIT. 31.2 % (36.0-48.0); HEMOGLOBIN. 10.1 g/dL (12.0-16.0); LYMPHOCYTES % 13.4 % (20.0-50.0); MEAN CORPUSCULAR HEMOGLOBIN 31.5 pg (28.0-32.0); MEAN CORPUSCULAR VOLUME 96.9 fL (81.0-99.0); MEAN PLATELET VOLUME 8.5 fl (7.4-10.4); MONOCYTES % 8.5 % (2.0-8.0); NEUTROPHILS % 75.3 % (40.0-76.0); PLATELET 165 x1000/uL (130-400); RED BLOOD CELL COUNT 3.22 mill/uL (4.2-5.4); RED CELL DISTRIBUTION WIDTH 15.7 % (11.6-14.6)
[2021-08-20 15:29] LABS: CHLORIDE 106 mEq/L (98-107)
[2021-08-20 15:31] LABS: INR 1.7; PROTHROMBIN TIME 17.2 sec (9.6-11.0)
[2021-08-20] MEDS ORDERED: ONDANSETRON HCL 4MG/2ML INJ IV STA (15:36)
[2021-08-20] MEDS ORDERED: MORPHINE SULFATE 4 MG/ML CPJ (NOT FOR IM USE) IV STA (15:36)
[2021-08-20] MEDS ORDERED: LIDOCAINE HCL 1% 20ML VIAL (Pyxis) INJ INFIL STA (15:55)
[2021-08-20] MEDS ORDERED: CEFTRIAXONE 2 G PREMIX 50 ML IV ONE (18:00)
[2021-08-20 18:52] LABS: HCG SCREEN NEGATIVE
[2021-08-20] MEDS ORDERED: GUAIFENESIN 200MG/10ML SUGAR FREE UDC PO PRN (23:00)
[2021-08-20] MEDS ORDERED: HYDROCODONE/ACETAMINOPHEN 5/325MG TABLET PO PRN (23:00)
[2021-08-20] MEDS ORDERED: IPRATROPIUM/ALBUTEROL 0.5-3(2.5)MG/3ML NEB NEB PRN (23:00)
[2021-08-20] MEDS ORDERED: ACETAMINOPHEN 325MG TABLET PO PRN (23:00)
[2021-08-20] MEDS ORDERED: MAGNESIUM/ALUMINUM HYDROXIDE/SIMETHICONE 30ML UDC PO PRN (23:00)
[2021-08-20] MEDS ORDERED: ONDANSETRON HCL 4MG/2ML INJ IV PRN (23:00)
[2021-08-20] MEDS ORDERED: CLONIDINE 0.1MG TABLET PO PRN (23:00)
[2021-08-20] MEDS ORDERED: LORAZEPAM 2MG/ML CPJ IV PRN (23:00)
[2021-08-20] MEDS ORDERED: CHLORDIAZEPOXIDE 25MG CAPSULE PO PRN (23:00)
[2021-08-20] MEDS ORDERED: DOCUSATE SODIUM 100MG CAPSULE PO PRN (23:00)
[2021-08-20] MEDS ORDERED: CEFTRIAXONE 1 G PREMIX 50 ML IV SCH (23:00)
[2021-08-20] MEDS ORDERED: NALOXONE HCL 0.4MG/ML VIAL IV PRN (23:15)
[2021-08-21 07:03] LABS: CHLORIDE 106 mEq/L (98-107)
[2021-08-21 07:08] LABS: BASOPHILS % 0.3 % (0.0-2.0); EOSINOPHILS % 3.5 % (0.0-5.0); HEMATOCRIT. 29.7 % (36.0-48.0); HEMOGLOBIN. 9.9 g/dL (12.0-16.0); LYMPHOCYTES % 15.8 % (20.0-50.0); MEAN CORPUSCULAR HEMOGLOBIN 32.3 pg (28.0-32.0); MEAN CORPUSCULAR VOLUME 96.4 fL (81.0-99.0); MONOCYTES % 5.4 % (2.0-8.0); RED BLOOD CELL COUNT 3.08 mill/uL (4.2-5.4); RED CELL DISTRIBUTION WIDTH 15.4 % (11.6-14.6)
[2021-08-21 07:11] LABS: LDL CHOLESTEROL 49 mg/dL (5-100)
[2021-08-21 07:12] LABS: CREATINE KINASE 63 IU/L (26-192)
[2021-08-21 07:14] LABS: HDL CHOLESTEROL 15 mg/dL (40-59)
[2021-08-21 07:49] LABS: PLATELET 118 x1000/uL (130-400)
[2021-08-21 07:52] LABS: PLATELET ESTIMATE SLIGHTLY DECREASED
[2021-08-21 08:30] VITALS: BP 94/61
[2021-08-21] MEDS ORDERED: SODIUM BICARBONATE 4% (2.4MEQ) 5ML VIAL IV ONE (09:08)
[2021-08-21] MEDS ORDERED: LIDOCAINE HCL 1% 20ML VIAL (Pyxis) INJ ONE (09:08)
[2021-08-21] MEDS: THIAMINE HCL 100MG TABLET PO SCH (11:42)
[2021-08-21] MEDS: FUROSEMIDE 40MG/4ML VIAL IV SCH ×2 (11:42→16:58)
[2021-08-21] MEDS: SPIRONOLACTONE 50MG TABLET PO SCH (11:42)
[2021-08-21] MEDS: MULTIVITAMINS,THER W-MINERALS TABLET PO SCH (11:43)
[2021-08-21] MEDS: FOLIC ACID 1MG TABLET PO SCH (11:43)
[2021-08-21 12:00] VITALS: BP 110/60
[2021-08-21 16:00] VITALS: BP 98/63
[2021-08-21 17:57] LABS: CREATINE KINASE 50 IU/L (26-192)
[2021-08-21 17:58] VITALS: BP 98/63
[2021-08-21 17:58] LABS: CREATINE KINASE MB FRACTION 2.5 ng/mL (0.5-3.6)
[2021-08-21] MEDS ORDERED: CEFTRIAXONE 1,000 MG in DEXTROSE 5% WATER 50 ML IV SCH (18:00)
[2021-08-21 20:00] VITALS: BP 103/54
[2021-08-21] MEDS: LEVETIRACETAM 500MG TABLET PO SCH (21:46)
[2021-08-21] MEDS: MIDODRINE HCL 5MG TABLET PO SCH (21:46)
[2021-08-21] MEDS: LACTULOSE 20G/30ML UDC PO SCH (21:49)
[2021-08-21] MEDS: METOCLOPRAMIDE HCL 5MG TABLET PO SCH (23:20)
[2021-08-22] VITALS: BP 86/51
[2021-08-22 04:00] VITALS: BP 97/62
[2021-08-22] MEDS: LACTULOSE 20G/30ML UDC PO SCH (05:40)
[2021-08-22] MEDS: METOCLOPRAMIDE HCL 5MG TABLET PO SCH (05:40)
[2021-08-22 06:34] LABS: BASOPHILS % 0.5 % (0.0-2.0); EOSINOPHILS % 3.5 % (0.0-5.0); HEMATOCRIT. 26.7 % (36.0-48.0); HEMOGLOBIN. 9.3 g/dL (12.0-16.0); LYMPHOCYTES % 19.4 % (20.0-50.0); MEAN CORPUSCULAR HEMOGLOBIN 33.2 pg (28.0-32.0); MEAN CORPUSCULAR VOLUME 95.1 fL (81.0-99.0); NEUTROPHILS % 70.6 % (40.0-76.0); RED BLOOD CELL COUNT 2.81 mill/uL (4.2-5.4); RED CELL DISTRIBUTION WIDTH 15.4 % (11.6-14.6)
[2021-08-22 08:00] VITALS: BP 101/62
[2021-08-22] MEDS: MIDODRINE HCL 5MG TABLET PO SCH (08:44)
[2021-08-22] MEDS: FOLIC ACID 1MG TABLET PO SCH (08:44)
[2021-08-22] MEDS: LEVETIRACETAM 500MG TABLET PO SCH (08:44)
[2021-08-22] MEDS: THIAMINE HCL 100MG TABLET PO SCH (08:44)
[2021-08-22] MEDS: MULTIVITAMINS,THER W-MINERALS TABLET PO SCH (08:44)
[2021-08-22 08:50] VITALS: BP 101/62
[2021-08-22] MEDS: FUROSEMIDE 40MG/4ML VIAL IV SCH (09:00)
[2021-08-22] MEDS: SPIRONOLACTONE 50MG TABLET PO SCH (09:06)
[2021-08-22 11:07] LABS: MEAN PLATELET VOLUME 8.3 fl (7.4-10.4)
[2021-08-22 11:08] LABS: PLATELET 131 x1000/uL (130-400)
[2021-09-08] MEDS ORDERED: FURO20TA4 MT (17:32)
== END 2021-08-22 10:10 | disposition home or self-care (01) ==
LOC: ER 14:05 → MICUSO 19:56 → 6EST 08-21 08:09
PROVIDERS: ADMIT Internal Medicine; ATTEND Internal Medicine
PROC: 0W9G3ZZ Drainage of Peritoneal Cavity, Percutaneous Approach (ICD-10-PCS; principal; 2021-08-21)
DX: K76.6 Portal hypertension (principal); E43 Unspecified severe protein-calorie malnutrition; I50.32 Chronic diastolic (congestive) heart failure; R18.8 Other ascites; K74.60 Unspecified cirrhosis of liver; E80.6 Other disorders of bilirubin metabolism; Z20.822 Contact with and (suspected) exposure to COVID-19; Z98.891 History of uterine scar from previous surgery; Z79.899 Other long term (current) drug therapy; F10.20 Alcohol dependence, uncomplicated
CPT/HCPCS: 36415; 49083; 71045; 74176; 80048; 80053; 80061; 82040; 82550; 82553; 83615; 84443; 84484; 84703; 85025; 87075; 87426; 93970; 97161; 99285; C1893; J0696; J1940; J2270; J2405; J3490; J7040; J7060; J8597

== ENCOUNTER 2021-09-15 15:38 | Inpatient (IN) | payer OTHER ==
[~2021-09-15] VITALS: Ht 160 cm; Wt 84.4 kg
[2021-09-15 18:42] LABS: BASOPHILS % 0.7 % (0.0-2.0); HEMATOCRIT. 31.1 % (36.0-48.0); HEMOGLOBIN. 10.5 g/dL (12.0-16.0); LYMPHOCYTES % 25.9 % (20.0-50.0); MEAN CORPUSCULAR HEMOGLOBIN 32.3 pg (28.0-32.0); MEAN CORPUSCULAR VOLUME 95.7 fL (81.0-99.0); MONOCYTES % 5.6 % (2.0-8.0); NEUTROPHILS % 65.8 % (40.0-76.0); PLATELET 113 x1000/uL (130-400); RED BLOOD CELL COUNT 3.25 mill/uL (4.2-5.4); RED CELL DISTRIBUTION WIDTH 16.9 % (11.6-14.6)
[2021-09-15 18:48] LABS: CHLORIDE 101 mEq/L (98-107)
[2021-09-15] MEDS ORDERED: ONDANSETRON HCL 4MG/2ML INJ IV STA (19:47)
[2021-09-15] MEDS ORDERED: MORPHINE SULFATE 4 MG/ML CPJ (NOT FOR IM USE) IV STA (19:47)
[2021-09-15] MEDS ORDERED: SODIUM CHLORIDE 0.9% 1,000 ML IV ONE (20:00)
[2021-09-15 20:07] LABS: CLARITY URINE CLOUDY (CLEAR); COLOR URINE YELLOW (YELLOW); KETONES URINE NEGATIVE (NEGATIVE); LEUKOCYTE ESTERASE URINE 3+ (NEGATIVE); NITRITE URINE NEGATIVE (NEGATIVE); OCCULT BLOOD URINE NEGATIVE (NEGATIVE); PH URINE 5.5 (4.5-8.0); PROTEIN URINE NEGATIVE (NEGATIVE); SPECIFIC GRAVITY URINE 1.006 (1.005-1.030); UROBILINOGEN URINE 0.2 E.U./dL (0.2-1.0)
[2021-09-15 20:32] LABS: HCG SCREEN NEGATIVE
[2021-09-15] MEDS ORDERED: CEFTRIAXONE 1 G PREMIX 50 ML IV ONE (21:00)
[2021-09-15] MEDS ORDERED: AZITHROMYCIN 500MG/250ML 250 ML IV ONE (21:00)
[2021-09-15] MEDS ORDERED: CEFTRIAXONE 1 G PREMIX 50 ML IV SCH (21:45)
[2021-09-15] MEDS ORDERED: IPRATROPIUM/ALBUTEROL 0.5-3(2.5)MG/3ML NEB HHN PRN (21:45)
[2021-09-15] MEDS ORDERED: ACETAMINOPHEN 325MG TABLET PO PRN ×2 (21:45)
[2021-09-15] MEDS ORDERED: ONDANSETRON HCL 4MG/2ML INJ IV PRN (21:45)
[2021-09-15] MEDS ORDERED: DOCUSATE SODIUM 100MG CAPSULE PO PRN (21:45)
[2021-09-15] MEDS ORDERED: CLONIDINE 0.1MG TABLET PO PRN (21:45)
[2021-09-15] MEDS ORDERED: MAGNESIUM/ALUMINUM HYDROXIDE/SIMETHICONE 30ML UDC PO PRN (21:45)
[2021-09-15] MEDS ORDERED: NALOXONE HCL 0.4MG/ML VIAL IV PRN (22:00)
[2021-09-15 23:05] LABS: CREATINE KINASE MB FRACTION 4.2 ng/mL (0.5-3.6)
[2021-09-16] MEDS: HYDROCODONE/ACETAMINOPHEN 5/325MG TABLET PO PRN ×3 (03:38→21:16)
[2021-09-16 10:00] VITALS: BP 104/66
[2021-09-16 11:14] LABS: BASOPHILS % 0.5 % (0.0-2.0); EOSINOPHILS % 3.1 % (0.0-5.0); HEMATOCRIT. 27.6 % (36.0-48.0); HEMOGLOBIN. 9.4 g/dL (12.0-16.0); MEAN CORPUSCULAR HEMOGLOBIN 32.8 pg (28.0-32.0); MEAN CORPUSCULAR VOLUME 96.6 fL (81.0-99.0); MEAN PLATELET VOLUME 6.7 fl (7.4-10.4); MONOCYTES % 8.8 % (2.0-8.0); NEUTROPHILS % 63.6 % (40.0-76.0); PLATELET 86 x1000/uL (130-400); RED BLOOD CELL COUNT 2.86 mill/uL (4.2-5.4)
[2021-09-16] MEDS: THIAMINE HCL 100MG TABLET PO SCH (11:26)
[2021-09-16] MEDS: FOLIC ACID 1MG TABLET PO SCH (11:26)
[2021-09-16] MEDS: MULTIVITAMINS,THER W-MINERALS TABLET PO SCH (11:26)
[2021-09-16 11:30] LABS: INR 1.4; PROTHROMBIN TIME 14.3 sec (9.6-11.0)
[2021-09-16 11:42] LABS: CHLORIDE 106 mEq/L (98-107)
[2021-09-16 11:54] LABS: LDL CHOLESTEROL 65 mg/dL (5-100)
[2021-09-16 11:55] LABS: CREATINE KINASE 66 IU/L (26-192)
[2021-09-16 11:58] LABS: CREATINE KINASE MB FRACTION 4.2 ng/mL (0.5-3.6); HDL CHOLESTEROL 41 mg/dL (40-59)
[2021-09-16] MEDS ORDERED: IOPAMIDOL 61% 300/15 ML VIAL IT ONE (12:43)
[2021-09-16] MEDS ORDERED: LIDOCAINE HCL 1% 20ML VIAL (Pyxis) INJ ONE (12:44)
[2021-09-16] MEDS ORDERED: SODIUM BICARBONATE 4% (2.4MEQ) 5ML VIAL IV ONE (12:45)
[2021-09-16] MEDS ORDERED: PNEUMOCOCCAL 23-VAL P-SAC VAC 0.5 ML IM ONE (13:00)
[2021-09-16] MEDS ORDERED: ACETAMINOPHEN 325MG TABLET PO PRN (15:00)
[2021-09-16] MEDS ORDERED: ONDANSETRON HCL 4MG/2ML INJ IV PRN (15:00)
[2021-09-16] MEDS ORDERED: ENOXAPARIN 40MG/0.4ML SYR SUBCUT SCH (15:00)
[2021-09-16] MEDS ORDERED: MAGNESIUM/ALUMINUM HYDROXIDE/SIMETHICONE 30ML UDC PO PRN (15:00)
[2021-09-16] MEDS ORDERED: *PATIENT'S OWN MEDICATION STORAGE XX SCH (15:00)
[2021-09-16] MEDS ORDERED: HYDROCODONE/ACETAMINOPHEN 5/325MG TABLET PO PRN (15:00)
[2021-09-16] MEDS: FUROSEMIDE 40MG/4ML VIAL IVP SCH (15:21)
[2021-09-16 16:00] VITALS: BP 109/67
[2021-09-16] MEDS: MIDODRINE HCL 5MG TABLET PO SCH (16:58)
[2021-09-16] MEDS: METOCLOPRAMIDE HCL 5MG TABLET PO SCH ×2 (17:48→23:46)
[2021-09-16] MEDS: ENOXAPARIN 30MG/0.3ML SYR SUBCUT SCH ×2 (18:00)
[2021-09-16] MEDS ORDERED: METOLAZONE 2.5MG TABLET PO NR (18:30)
[2021-09-16] MEDS: CEFTRIAXONE 1,000 MG in DEXTROSE 5% WATER 50 ML IV SCH (18:40)
[2021-09-16] MEDS: LACTULOSE 20G/30ML UDC PO SCH (21:06)
[2021-09-16] MEDS: LEVETIRACETAM 500MG TABLET PO SCH (21:07)
[2021-09-17] VITALS: BP 103/56
[2021-09-17 04:00] VITALS: BP 102/61
[2021-09-17 05:16] LABS: BASOPHILS % 0.5 % (0.0-2.0); EOSINOPHILS % 2.3 % (0.0-5.0); HEMATOCRIT. 26.6 % (36.0-48.0); HEMOGLOBIN. 8.9 g/dL (12.0-16.0); LYMPHOCYTES % 28.9 % (20.0-50.0); MEAN CORPUSCULAR HEMOGLOBIN 32.3 pg (28.0-32.0); MEAN CORPUSCULAR VOLUME 96.2 fL (81.0-99.0); MEAN PLATELET VOLUME 6.8 fl (7.4-10.4); MONOCYTES % 9.7 % (2.0-8.0); NEUTROPHILS % 58.6 % (40.0-76.0); PLATELET 74 x1000/uL (130-400); RED BLOOD CELL COUNT 2.76 mill/uL (4.2-5.4); RED CELL DISTRIBUTION WIDTH 17.4 % (11.6-14.6)
[2021-09-17] MEDS: LACTULOSE 20G/30ML UDC PO SCH ×4 (05:36→20:20)
[2021-09-17] MEDS: METOCLOPRAMIDE HCL 5MG TABLET PO SCH ×4 (05:36→23:24)
[2021-09-17] MEDS: ENOXAPARIN 30MG/0.3ML SYR SUBCUT SCH ×3 (05:36→17:22)
[2021-09-17] MEDS: OMEPRAZOLE 20MG CAPSULE EXTENDED RELEASE PO SCH (05:36)
[2021-09-17 05:42] LABS: CHLORIDE 109 mEq/L (98-107)
[2021-09-17 05:50] LABS: HDL CHOLESTEROL 38 mg/dL (40-59); PHOSPHORUS 4.4 mg/dL (2.5-4.9)
[2021-09-17 05:51] LABS: T4 FREE 1.29 ng/dL (0.76-1.46)
[2021-09-17 05:52] LABS: LDL CHOLESTEROL 63 mg/dL (5-100)
[2021-09-17 08:00] VITALS: BP 109/67
[2021-09-17] MEDS: FOLIC ACID 1MG TABLET PO SCH (08:51)
[2021-09-17] MEDS: LEVETIRACETAM 500MG TABLET PO SCH ×2 (08:52→20:20)
[2021-09-17] MEDS: FUROSEMIDE 40MG/4ML VIAL IVP SCH ×2 (08:52→17:00)
[2021-09-17] MEDS: MIDODRINE HCL 5MG TABLET PO SCH ×3 (08:52→17:00)
[2021-09-17] MEDS: MULTIVITAMINS,THER W-MINERALS TABLET PO SCH (08:52)
[2021-09-17] MEDS: THIAMINE HCL 100MG TABLET PO SCH (08:52)
[2021-09-17] MEDS ORDERED: LIDOCAINE HCL 1% 20ML VIAL (Pyxis) INJ ONE (11:05)
[2021-09-17 11:44] VITALS: BP 148/58
[2021-09-17] MEDS: CEFTRIAXONE 1,000 MG in DEXTROSE 5% WATER 50 ML IV SCH (13:01)
[2021-09-17 16:00] VITALS: BP 110/71
[2021-09-17 18:47] LABS: HEPATITIS B SURFACE ANTIGEN NEGATIVE
[2021-09-17 20:00] VITALS: BP 157/83
[2021-09-17] MEDS: HYDROCODONE/ACETAMINOPHEN 5/325MG TABLET PO PRN (20:21)
[2021-09-18] VITALS: BP 95/60
[2021-09-18 04:00] VITALS: BP 91/55
[2021-09-18] MEDS: ENOXAPARIN 30MG/0.3ML SYR SUBCUT SCH (06:00)
[2021-09-18] MEDS: LACTULOSE 20G/30ML UDC PO SCH ×3 (06:37→21:07)
[2021-09-18] MEDS: METOCLOPRAMIDE HCL 5MG TABLET PO SCH (06:37)
[2021-09-18] MEDS: OMEPRAZOLE 20MG CAPSULE EXTENDED RELEASE PO SCH (06:37)
[2021-09-18 07:27] LABS: BASOPHILS % 0.8 % (0.0-2.0); EOSINOPHILS % 3.3 % (0.0-5.0); HEMATOCRIT. 26.2 % (36.0-48.0); LYMPHOCYTES % 32.4 % (20.0-50.0); MEAN CORPUSCULAR HEMOGLOBIN 32.9 pg (28.0-32.0); MEAN CORPUSCULAR VOLUME 95.7 fL (81.0-99.0); MEAN PLATELET VOLUME 7.5 fl (7.4-10.4); MONOCYTES % 9.4 % (2.0-8.0); NEUTROPHILS % 54.1 % (40.0-76.0); PLATELET 57 x1000/uL (130-400); RED BLOOD CELL COUNT 2.73 mill/uL (4.2-5.4); RED CELL DISTRIBUTION WIDTH 17.5 % (11.6-14.6)
[2021-09-18 08:00] VITALS: BP 100/66
[2021-09-18] MEDS: THIAMINE HCL 100MG TABLET PO SCH (10:35)
[2021-09-18] MEDS: FUROSEMIDE 40MG/4ML VIAL IVP SCH ×2 (10:35→17:44)
[2021-09-18] MEDS: LEVETIRACETAM 500MG TABLET PO SCH ×2 (10:35→20:01)
[2021-09-18] MEDS: MIDODRINE HCL 5MG TABLET PO SCH ×3 (10:36→17:44)
[2021-09-18] MEDS: FOLIC ACID 1MG TABLET PO SCH (10:36)
[2021-09-18] MEDS: MULTIVITAMINS,THER W-MINERALS TABLET PO SCH (10:36)
[2021-09-18 12:00] VITALS: BP 92/53
[2021-09-18 16:00] VITALS: BP 96/58
[2021-09-18 20:00] VITALS: BP 100/56
[2021-09-18] MEDS ORDERED: POTASSIUM CHLORIDE 20MEQ TABLET SR PO NR (21:30)
[2021-09-19] VITALS: BP 91/48
[2021-09-19 04:00] VITALS: BP 87/51
[2021-09-19] MEDS: LACTULOSE 20G/30ML UDC PO SCH ×3 (06:00→20:35)
[2021-09-19 06:06] LABS: BASOPHILS % 0.7 % (0.0-2.0); EOSINOPHILS % 2.8 % (0.0-5.0); HEMATOCRIT. 29.8 % (36.0-48.0); LYMPHOCYTES % 32.4 % (20.0-50.0); MEAN CORPUSCULAR HEMOGLOBIN 32.3 pg (28.0-32.0); MEAN CORPUSCULAR VOLUME 96.2 fL (81.0-99.0); MEAN PLATELET VOLUME 7.5 fl (7.4-10.4); MONOCYTES % 8.3 % (2.0-8.0); NEUTROPHILS % 55.8 % (40.0-76.0); PLATELET 56 x1000/uL (130-400); RED CELL DISTRIBUTION WIDTH 17.3 % (11.6-14.6)
[2021-09-19] MEDS: OMEPRAZOLE 20MG CAPSULE EXTENDED RELEASE PO SCH (06:45)
[2021-09-19 08:00] VITALS: BP 84/64
[2021-09-19] MEDS: THIAMINE HCL 100MG TABLET PO SCH (08:44)
[2021-09-19] MEDS: MULTIVITAMINS,THER W-MINERALS TABLET PO SCH (08:44)
[2021-09-19] MEDS: MIDODRINE HCL 5MG TABLET PO SCH ×3 (08:44→18:14)
[2021-09-19] MEDS: FOLIC ACID 1MG TABLET PO SCH (08:44)
[2021-09-19] MEDS: LEVETIRACETAM 500MG TABLET PO SCH ×2 (08:44→20:34)
[2021-09-19] MEDS: FUROSEMIDE 40MG/4ML VIAL IVP SCH ×2 (08:44→18:14)
[2021-09-19 12:00] VITALS: BP 94/61
[2021-09-19] MEDS ORDERED: METOLAZONE 2.5MG TABLET PO NR (12:00)
[2021-09-19] MEDS ORDERED: ALBUMIN HUMAN 12.5GM/50ML (25%) IV NR (12:00)
[2021-09-19 16:00] VITALS: BP 100/81
[2021-09-19 20:00] VITALS: BP 97/58
[2021-09-20 00:15] VITALS: BP 92/53
[2021-09-20 04:00] VITALS: BP 89/51
[2021-09-20] MEDS: LACTULOSE 20G/30ML UDC PO SCH ×3 (06:04→21:09)
[2021-09-20] MEDS: OMEPRAZOLE 20MG CAPSULE EXTENDED RELEASE PO SCH (06:04)
[2021-09-20 08:00] VITALS: BP 89/54
[2021-09-20 08:32] LABS: BASOPHILS % 0.7 % (0.0-2.0); HEMATOCRIT. 26.3 % (36.0-48.0); HEMOGLOBIN. 8.9 g/dL (12.0-16.0); LYMPHOCYTES % 31.3 % (20.0-50.0); MEAN CORPUSCULAR HEMOGLOBIN 32.9 pg (28.0-32.0); MEAN CORPUSCULAR VOLUME 97.8 fL (81.0-99.0); MEAN PLATELET VOLUME 8.9 fl (7.4-10.4); MONOCYTES % 11.1 % (2.0-8.0); NEUTROPHILS % 52.9 % (40.0-76.0); PLATELET 55 x1000/uL (130-400); RED BLOOD CELL COUNT 2.69 mill/uL (4.2-5.4); RED CELL DISTRIBUTION WIDTH 17.6 % (11.6-14.6)
[2021-09-20] MEDS: LEVETIRACETAM 500MG TABLET PO SCH ×2 (08:40→21:09)
[2021-09-20] MEDS: FUROSEMIDE 40MG/4ML VIAL IVP SCH (08:40)
[2021-09-20] MEDS: MIDODRINE HCL 5MG TABLET PO SCH ×3 (08:40→17:18)
[2021-09-20] MEDS: FOLIC ACID 1MG TABLET PO SCH (08:40)
[2021-09-20] MEDS: MULTIVITAMINS,THER W-MINERALS TABLET PO SCH (08:43)
[2021-09-20] MEDS: THIAMINE HCL 100MG TABLET PO SCH (08:45)
[2021-09-20 12:00] VITALS: BP 100/65
[2021-09-20] MEDS ORDERED: ALBUMIN HUMAN 12.5GM/50ML (25%) IV SCH (12:00)
[2021-09-20 16:00] VITALS: BP 105/59
[2021-09-20] MEDS: FUROSEMIDE 100MG/10ML VIAL IVP SCH (17:11)
[2021-09-20 20:00] VITALS: BP 99/62
[2021-09-21] VITALS: BP 91/55
[2021-09-21 04:00] VITALS: BP 110/68
[2021-09-21] MEDS: OMEPRAZOLE 20MG CAPSULE EXTENDED RELEASE PO SCH (06:07)
[2021-09-21] MEDS: LACTULOSE 20G/30ML UDC PO SCH ×2 (06:07→13:44)
[2021-09-21] MEDS: FUROSEMIDE 100MG/10ML VIAL IVP SCH (06:07)
[2021-09-21 08:00] VITALS: BP 105/76
[2021-09-21 08:05] LABS: BASOPHILS % 0.7 % (0.0-2.0); EOSINOPHILS % 3.4 % (0.0-5.0); HEMATOCRIT. 29.7 % (36.0-48.0); LYMPHOCYTES % 34.5 % (20.0-50.0); MEAN CORPUSCULAR HEMOGLOBIN 32.7 pg (28.0-32.0); MEAN CORPUSCULAR VOLUME 97.2 fL (81.0-99.0); MEAN PLATELET VOLUME 7.6 fl (7.4-10.4); MONOCYTES % 10.7 % (2.0-8.0); NEUTROPHILS % 50.7 % (40.0-76.0); RED BLOOD CELL COUNT 3.06 mill/uL (4.2-5.4); RED CELL DISTRIBUTION WIDTH 17.2 % (11.6-14.6)
[2021-09-21 08:10] LABS: CHLORIDE 105 mEq/L (98-107)
[2021-09-21] MEDS: FOLIC ACID 1MG TABLET PO SCH (09:02)
[2021-09-21] MEDS: LEVETIRACETAM 500MG TABLET PO SCH (09:02)
[2021-09-21] MEDS: THIAMINE HCL 100MG TABLET PO SCH (09:02)
[2021-09-21] MEDS: MULTIVITAMINS,THER W-MINERALS TABLET PO SCH (09:02)
[2021-09-21] MEDS: MIDODRINE HCL 5MG TABLET PO SCH ×2 (09:03→12:36)
[2021-09-21 09:04] LABS: PLATELET ESTIMATE MARKEDLY DECREASED
[2021-09-21 12:00] VITALS: BP 93/55
[2021-09-21] MEDS ORDERED: FURO10VI3 IVP (13:35)
[2021-09-21 13:51] VITALS: BP 93/55
[2021-09-22 10:07] LABS: PLATELET 40 x1000/uL (130-400)
== END 2021-09-21 16:45 | disposition home or self-care (01) | DRG 720 ==
LOC: ER 15:38 → MICUSO 21:16 → EDBEDREQSVC 09-16 07:04 → 5WST 09-16 10:04
PROVIDERS: ADMIT Internal Medicine; ATTEND Internal Medicine
PROC: 0W9G3ZZ Drainage of Peritoneal Cavity, Percutaneous Approach (ICD-10-PCS; principal; 2021-09-16)
PROC: 5A1D70Z Performance of Urinary Filtration, Intermittent, Less than 6 Hours Per Day (ICD-10-PCS; 2021-09-16)
PROC: 05HM33Z Insertion of Infusion Device into Right Internal Jugular Vein, Percutaneous Approach (ICD-10-PCS; 2021-09-17)
PROC: B543ZZA Ultrasonography of Right Jugular Veins, Guidance (ICD-10-PCS; 2021-09-17)
PROC: 5A1D70Z Performance of Urinary Filtration, Intermittent, Less than 6 Hours Per Day (ICD-10-PCS; 2021-09-17)
PROC: 5A1D70Z Performance of Urinary Filtration, Intermittent, Less than 6 Hours Per Day (ICD-10-PCS; 2021-09-18)
PROC: 5A1D70Z Performance of Urinary Filtration, Intermittent, Less than 6 Hours Per Day (ICD-10-PCS; 2021-09-20)
DX: A41.9 Sepsis, unspecified organism (principal); E43 Unspecified severe protein-calorie malnutrition; D69.6 Thrombocytopenia, unspecified; J18.9 Pneumonia, unspecified organism; K70.31 Alcoholic cirrhosis of liver with ascites; N17.9 Acute kidney failure, unspecified; E87.1 Hypo-osmolality and hyponatremia; K76.6 Portal hypertension; K57.30 Diverticulosis of large intestine without perforation or abscess without bleeding; I50.32 Chronic diastolic (congestive) heart failure; D64.9 Anemia, unspecified; F10.21 Alcohol dependence, in remission; N39.0 Urinary tract infection, site not specified; E66.9 Obesity, unspecified; F17.200 Nicotine dependence, unspecified, uncomplicated; Z20.822 Contact with and (suspected) exposure to COVID-19; Z98.891 History of uterine scar from previous surgery; Z68.33 Body mass index [BMI] 33.0-33.9, adult; Z79.899 Other long term (current) drug therapy; I11.0 Hypertensive heart disease with heart failure; E87.6 Hypokalemia
CPT/HCPCS: 36415; 36556; 49083; 71045; 74176; 76937; 80048; 80053; 80061; 80076; 81003; 82550; 82553; 83605; 83735; 83880; 84100; 84439; 84443; 84484; 84703; 85025; 86705; 86709; 86803; 87340; 87426; 90732; 93005; 93970; 97161; 99291; C1752; J0456; J0696; J1940; J2270; J2405; J3490; J7030; J7060; J8597; P9047; Q9967